=== PATIENT | female | born 1950 | race Caucasian/White ===

== ENCOUNTER 2016-12-29 09:13 | Inpatient (IN) | payer MEDICARE, OTHER ==
--- NOTE | 2016-12-26 15:02 | Anesthesia Consultation ---
Anesthesia Consult and Med Hx Date of service: 12/26/16 - Airway Anesthetic Teeth Evaluation: Good ROM Head & Neck: Adequate Mental/Hyoid Distance: Adequate Mallampati Class: Class II Intubation Access Assessment: Probably Good - Pulmonary Exam CTA: Yes - Cardiac Exam Cardiac Exam: RRR - Pre-Operative Health Status ASA Pre-Surgery Classification: ASA3 Proposed Anesthetic Plan: Spinal, MAC - Pre-Anesthesia Comment Pre-Anesthesia Comments: Hx of paralysis of L Vocal cord: resolved, on steroid medication, severe RA. Pt did not bring Cardiac and RA clearance today, RN will call for it on DOS. - Pulmonary Hx Smoking: No Hx Asthma: No Hx Sleep Apnea: No (YUDITH PRE SCREEN HIGH RISK) - Cardiovascular System Hx Hypertension: Yes (X 4 YRS) Hx Heart Attack/AMI: No - Central Nervous System Hx Neuromuscular Disorder: Yes (severe RA, cane/wheelchair prn) Hx Seizures: No CVA: No Hx Back Pain: Yes - Gastrointestinal Hx Gastroesophageal Reflux Disease: Yes (well controlled with meds) - Endocrine Hx Renal Disease: No Hx Liver Disease: No Hx Non-Insulin Dependent Diabetes: Yes Hx Hypothyroidism: Yes (on synthroid) - Hematic Hx Anemia: Yes Hx Sickle Cell Disease: No - Other Systems Hx Cancer: No - Additional Comments Anesthesia Medical History Comments: NAC
--- NOTE | 2016-12-28 13:55 | Admit Criteria Form ---
Admission Criteria Documentation: AMBULATORY SURGERY EXCEPTION CRITERIA Ambulatory Surgery Exception Criteria ( Place 'X' for any and all applicable criteria): Surgery or procedure performed on ambulatory basis may require inpatient stay for[A] ANY ONE of the following(1)(2)(3)(4)(5)(6)(7)(8)(9): [X] I. A preoperative situation, condition, or finding that warrants inpatient stay as indicated by ANY ONE of the following: [] a) Inpatient care needed because of severity of a disease or condition rather than the surgery (eg, severe cardiac or respiratory disease, severe infection) (15) (16 ) (17) (18) [] b) Emergent procedure (eg, angioplasty for acute ischemia)(19) [] c) Complex surgical approach or situation as indicated by ANY ONE of the following(3): [] i) Open approach needed instead of usual endoscopic, transcatheter, or other less invasive procedure [] ii) Difficult approach because of previous operation [] iii) Airway monitoring required after open neck procedures(20)(21) [] iv) Large mass requiring unusually extensive dissection [] v) Additional complicating feature requiring inpatient care (eg, drain management)(22(23): [X] d) Major surgery in a pt with high anesthetic risk as indicated by ANY ONE of the following (2)(3)(5)(7)(8): [X] i) ASA risk class III or higher (severe systemic disease impairing function) [D] [] ii) Advanced age (eg, older than 85 years)(14)(24) [] iii) Symptomatic heart failure(25) [] iv) Symptomatic asthma or COPD(8)(21) [] v) Morbid obesity with hemodynamic or respiratory problems(20)( 21)(26)(27) [] vi) Obstructive sleep apnea(20)(21) [] vii) Former premature infants who are younger than 60 weeks [] viii) High risk for severe postoperative abnormalities (eg, severe postoperative hypocalcemia after parathyroidectomy for severe hyperparathyroidism)(27)( 28) [] ix) Unstable angina(25) [] e) Drug-related risk requiring inpatient stay as indicated by ANY ONE of the following(5)(10)(14)(32)(33) [] i) Procedure requires discontinuing drugs or other therapy (eg , antiarrhythmic medication, antiseizure medication), which necessitates inpatient observation or treatment.(18)(31) [] ii) Major surgery and high risk drug use as indicated by ANY ONE of the following: [] 1) Active abuse of cocaine or similar drug [] 2) Monoamine oxidase inhibitor use [] 3) Other drug identified as posing risk [] f) Inadequate outpatient care situation as indicated by ANY ONE of the following(5)(10)(14)(32)(33) [] i) Patient lives remote from medical facility and procedure has urgent complication potential, and temporary nearby residence cannot be arranged [] ii) Patient will have postprocedure incapacitation and inadequate assistance at home, or alternative level of care cannot be arranged. [] iii) Patient will have long general anesthesia or procedure side effect resolution time, and competent person to stay with patient on first postoperative night at home or alternative level of care cannot be arranged. []iv) Other inadequate outpatient situation that cannot be handled by other means [] II. A perioperative event, condition, or finding that warrants inpatient stay as indicated by ANY ONE of the following (1)(2)(3): [] a) Inadequate physiologic recovery: cardiovascular, respiratory, or hemodynamic status not normal or near preoperative baseline(18) [] b) Hemodynamic instability [] c) Patient not alert with near normal or baseline mental status [] d) Temperature not normal or as expected and not appropriate for outpatient treatment of condition [] e) Ambulatory or appropriate activity level status not yet achieved post procedure [E](34)(35)(36) [] f) Operative site not appropriate (eg, unexpected or excessive drainage or bleeding) [] g) Postoperative effects not resolved or adequately managed (eg, significant pain or vomiting not appropriate for outpatient or next level of care)(10)(12) [] h) Complicating features requiring inpatient care as indicated by ANY ONE of the following(37): [] i) Severe complications of procedure (eg, bowel injury, airway compromise, vascular injury,severe hemorrhage) [] ii) Extensive (eg, dissection far beyond usual scope of procedure ) or prolonged (eg, 120 minutes beyond usual) surgery needed requiring inpatient postoperative care [] iii) Conversion to an open or complex procedure that requires inpatient care (eg, open vs laparoscopic cholecystectomy, abdominal vs vaginal hysterectomy)(38) [] iv) Comorbid condition or test result identified during or post procedure that requires inpatient care (7) [] v) Malignant hyperthermia(30) [] vi) Other complicating feature requiring inpatient care(22)(23) Inpatient stay may be needed until ALL of the following are present (1)(2)(3)(4) (5)(6)(10)(14)(33)(40): []a) Physiologic recovery: cardiovascular, respiratory, and hemodynamic status normal or near preoperative baseline []b) Hemodynamic stability []c) Patient alert, with near normal or baseline mental status []d) Temperature appropriate: patient afebrile or temperature appropriate for outpt treatment of condition []e) Activity level appropriate: ambulatory or appropriate activity level post procedure []f) Operative site appropriate as indicated by ALL of the following: []i) Site dry or with expected drainage []ii) Any blood noted is as expected for procedure. []g) Postoperative effects resolved or managed as indicated by ALL of the following: []i) Pain management appropriate for outpatient (or next level of) care(10) []ii) Minimal nausea and vomiting: if present, successfully treated with oral medication(12) []iii) Headache, dizziness, or drowsiness (if present) are mild. []h) Voiding status acceptable as indicated by ANY ONE of the following: []i) Voiding spontaneously []ii) No voiding but instructions given for follow-up in 6 to 8 hours []iii) Urinary catheter in place, and instructions given for follow-up []i) Complicating features requiring inpatient care manageable at a lower level of care(37) []j) Comorbid conditions manageable at a lower level of care(37) The original [employer] content created by [employer] has been revised. The portions of the content which have been revised are identified through the use of italic text or in bold, and [facility] [employer] has neither reviewed nor approved the modified material. All other unmodified content is copyright [employer]. Please see references footnoted in the original [employer] edition 2016 Admission Criteria Met: Yes
[~2016-12-29 09:13] MED LIST: ANCEF/STERILE WATER 2 GM/20 ML IV NR; NEURONTIN PO NR; PEPCID PO NR; VERSED IV NR
[2016-12-29] MEDS ORDERED: NACL 0.9% 1000 ML 1,000 ML ONE ×2 (09:32→13:35)
[2016-12-29] MEDS ORDERED: NACL BACTERIOSTATIC INFILTRATI ONE (09:35)
[2016-12-29] MEDS ORDERED: ANCEF/STERILE WATER 2 GM/20 ML IV NR (10:00)
[2016-12-29] MEDS: NACL 0.9% 1000 ML 1,000 ML IV SCH (10:20)
[2016-12-29] MEDS ORDERED: DILAUDID ONE ×3 (10:35→15:25)
[2016-12-29] MEDS ORDERED: DIPRIVAN 10 MG/ML IV ONE (10:35)
[2016-12-29] MEDS ORDERED: ZEMURON IV ONE (10:36)
[2016-12-29] MEDS ORDERED: XYLOCAINE MPF 2% ONE (10:36)
[2016-12-29] MEDS ORDERED: MARCAINE-EPI 0.5%-1:200,000 INFILTRATI ONE (10:52)
[2016-12-29] MEDS ORDERED: DECADRON ONE ×2 (10:52→14:10)
[2016-12-29] MEDS ORDERED: XYLOCAINE 1% 20 mL ONE (10:52)
[2016-12-29] MEDS ORDERED: ePHEDrine SULFATE ONE (12:01)
[2016-12-29] MEDS ORDERED: POLYMYXIN B SULFATE IV ONE (12:52)
[2016-12-29] MEDS ORDERED: WATER FOR IRRIG STERILE IR ONE (12:52)
[2016-12-29] MEDS ORDERED: XYLOCAINE 1%/ EPI 1:100,000 INFILTRATI ONE (12:52)
[2016-12-29] MEDS ORDERED: TRANEXAMIC ACID IV ONE (12:52)
[2016-12-29] MEDS ORDERED: BACITRACIN IR ONE (12:52)
[2016-12-29] MEDS ORDERED: NACL 0.9% IR ONE ×2 (12:52)
[2016-12-29] MEDS ORDERED: ZOFRAN ONE (14:10)
[2016-12-29] MEDS ORDERED: ROBINUL ONE (14:12)
[2016-12-29] MEDS ORDERED: NEOSTIGMINE ONE (14:12)
[2016-12-29] MEDS ORDERED: MORPHINE IM ONE (14:20)
[2016-12-29] MEDS ORDERED: TORADOL PO ONE (14:20)
[2016-12-29] MEDS ORDERED: MARCAINE 0.25% INFILTRATI ONE (14:20)
[2016-12-29] MEDS ORDERED: NACL 0.9% IV ONE (14:20)
[2016-12-29] MEDS ORDERED: TYLENOL PO PRN (14:28)
[2016-12-29] MEDS ORDERED: MILK OF MAGNESIA PO PRN (14:28)
[2016-12-29] MEDS ORDERED: ZOFRAN IV PRN (14:28)
[2016-12-29] MEDS ORDERED: PHENERGAN PR PRN (14:28)
[2016-12-29] MEDS ORDERED: TORADOL IV PRN ×2 (14:34→14:38)
[2016-12-29] MEDS ORDERED: NACL IV ONE (14:52)
[2016-12-29] MEDS ORDERED: SODIUM CHLORIDE FLUSH SYRINGE 10 ML IV SCH (15:00)
[2016-12-29] MEDS: DILAUDID IV PRN ×2 (15:25→16:30)
[2016-12-29] MEDS: ANCEF/NS 1 GM/50 ML 1 GM/50 ML BAG IV SCH (17:52)
--- NOTE | 2016-12-29 18:45 | Operative Report ---
SURGEON: Luke Singh M.D. ASSISTANTS: Brittaney operative tech and Axel operative tech. PREOPERATIVE DIAGNOSES: Severe advanced osteoarthritis of the left knee joint secondary to rheumatoid arthritis with genu valgum deformity, stiff left knee joint, synovial hypertrophy, synovial proliferation of the left knee joint. POSTOPERATIVE DIAGNOSES: Severe advanced osteoarthritis of the left knee joint secondary to rheumatoid arthritis with genu valgum deformity, stiff left knee joint, synovial hypertrophy, synovial proliferation of the left knee joint. PROCEDURES PERFORMED: 1. Left total knee replacement complex. 2. Synovectomy, left knee joint. COMPLICATIONS: None. BLOOD LOSS: Minimal. IMPLANTS USED: and Nephew Legion Oxinium femoral components, size 4 narrow left posterior stabilized. Prolonged poly S tibial size 2, Candida 2 polyethylene liner highly crossing 11 mm, patella 29 mm, 3 post 77.5 mm thick. Incision: Midline incision medial. Arthrotomy, medial parapatellar arthrotomy. Medial release: No. Lateral release: Yes. Recut: No. Vessel saved: Not applicable. Epicondylar angle: 4 degrees. Cement: Palacos R + G. DETAILS OF THE OPERATIVE REPORT: The patient was taken to the operative room. After smooth general endotracheal anesthesia, all the bony prominences carefully padded, placed supine on the operating table. Gibson catheter placed. Thigh Tourniquet placed. Left lower extremity prepped and draped in sterile fashion. The patient given 1 g of Ancef half an hour before the procedure. Leg elevated, tourniquet inflated to 95 mmHg. Longitudinal incision made over the anterior aspect of the knee exposing extensive mechanism, but an arthrotomy performed. Patella was displaced laterally. Gross finding revealed severe advanced degenerative arthritis, synovial hypertrophy with perforation seen, and necessary soft tissue release was performed to correct the fixed angular deformity, medial retractors were placed to protect the medial collaterals ligament. Drill was used to open up the femoral canal. Distal intramedullary femoral cutting guide was placed. Distal femur resected 5 degree valgus angle. Epicondylar access apex was determined. Femoral sizing guide was placed, appropriate components selected. Anterior and posterior condyles were resected with oscillating saw. Extramedullary tibial cutting guide was placed, proximal tibia resected perpendicular to the long axis of tibia. Minimum bone resection performed about 6 mm from the proximal medial tibia given the significant valgus deformity and stretched medial collateral ligament. Minimum bone resection performed. Gap balancing was achieved by doing appropriate release on the lateral side. Once gap balancing was achieved, tibia was prepared by placing the tibial tray while placing in proper position, proper external rotation, prepared with a drill and punch technique. Femur was then placed in proper position, proper external rotation, and packed in place, and prepared. A trial femur was placed and then prepared for the box through and Nephew box perforation technique. Trialing was then performed. With 11 poly, we had great stability, full extension, full flexion, stable medially and laterally, and stable anteroposteriorly, full extension, and full flexion. Patellar tracking central. Patella prepared with patellar reaming system prepared for three post-patella. Prepatellar thickness 25 mm, post-patellar 24 mm. 7.5 mm thickness patella was used. Patellar tracking central throughout range of motion. Trial components were removed, thoroughly washed the knee area with antibiotic-soaked normal saline followed by normal saline, and cementing of the knee was then commenced. Tibia was cemented first set in proper position, proper external rotation, impacted in place. Excess cement was removed. Femur was then cemented in proper position, proper external rotation, impacted in place. Excess cement was removed. Trial liner was then placed, cementing of the patella was performed compression in place. Excess cement was removed. Once the cement was hardened, real tibial articulating surface was implanted and locked in place and knee moved through range of motion, stable throughout range of motion. Patellar tracking central. Tourniquet released. Hemostasis achieved with electrocautery. No active bleeder as such. Arthrotomy closed with 0 Vicryl suture, subcutaneous tissue closed with 0 and 2-0 Vicryl interrupted sutures, skin was closed with Monocryl. Aquacel dressing was done. Jono wrap applied. The patient tolerated the procedure well, shifted to recovery room in stable condition. Sponge and needle count was correct. JOB# [id number] YAHIR/KOLTON
--- NOTE | 2016-12-29 20:43 | Consultation ---
History of Present Illness - Reason for Consult Consult date: 12/29/16 Medical Management Requesting physician: GILLIAN MENJIVAR - History of Present Illness S/p L TKA-post op doing well.No complications. Past History Past Medical History: arthritis (Severe RA), diabetes, hypertension Past Surgical History: total knee replacement Social history: no significant social history, lives with family Family history: hypertension Medications and Allergies Allergies Allergy/AdvReac Type Severity Reaction Status Date / Time infliximab [From Remicade] Allergy Itching Verified 12/26/16 10:43 methotrexate AdvReac Anaphylaxis Verified 12/26/16 10:43 Home Medications Medication Instructions Recorded Confirmed Last Taken Type Abatacept [Orencia] 500 mg SQ Q4W 12/26/16 12/26/16 12/28/16 History Brinzolamide [Azopt 1%] 1 drop INTRAOCULA BID 12/26/16 12/26/16 12/28/16 History Calcium Carbonate 400 mg PO BID 12/26/16 12/26/16 12/28/16 History Cholecalciferol Vit D3 [Vitamin D3] 1,000 unit PO BID 12/26/16 12/26/16 History Diclofenac Sodium 75 mg PO BID 12/26/16 12/29/16 1 Week Ago History Folic Acid 0.4 mg PO QDAY 12/26/16 12/26/16 12/28/16 History Hydrochlorothiazide [Hctz] 12.5 mg PO QDAY 12/26/16 12/26/16 12/28/16 History Leflunomide [Arava] 5 mg PO QDAY 12/26/16 12/29/16 1 Week Ago History Levothyroxine [Synthroid] 88 mcg PO QAM 12/26/16 12/26/16 12/29/16 08:00 History Losartan [Cozaar] 100 mg PO QDAY 12/26/16 12/29/16 12/29/16 08:00 History Prednisone [predniSONE (Bennie) ER 5 mg PO QDAY 12/26/16 12/29/16 12/29/16 08:00 History TAB] Ranitidine HCl [Heartburn Relief] 150 mg PO BID 12/26/16 12/26/16 12/28/16 History Rosuvastatin (Nf) [Crestor] 2.5 mg PO Q48HR 12/26/16 12/26/16 12/28/16 History Sitagliptin/Metformin (Nf) 1 tab PO BID 12/26/16 12/26/16 12/28/16 History [Janumet 50-1,000 mg (Nf)] Travoprost 0.004% Eye Drop 1 drop INTRAOCULA QHS 12/26/16 12/26/16 12/28/16 History amLODIPine [Norvasc] 5 mg PO DAILY 12/26/16 12/26/16 12/29/16 08:00 History traMADol [Ultram 50 MG tab] 50 mg PO PRN PRN 12/26/16 12/26/16 12/28/16 History Acetaminophen [Shake That Ache] 2 tab PO ONCE 12/29/16 12/29/16 12/29/16 08:00 History Celecoxib [Celecoxib] 1 tab PO ONCE 12/29/16 12/29/16 12/29/16 08:00 History Gabapentin [Gabapentin] 1 tab PO ONCE 12/29/16 12/29/16 12/29/16 08:00 History Oxycodone HCl [Oxycontin] 10 mg PO ONCE 12/29/16 12/29/16 12/29/16 08:00 History Active Meds: Active Medications Acetaminophen (Tylenol) 650 mg PO Q4H PRN PRN Reason: Pain MILD(1-3)/Fever >100.5/FRENCH Amlodipine Besylate (Norvasc) 5 mg PO DAILY [facility] Aspirin (Aspirin) 325 mg PO BID [facility] Atorvastatin Calcium (Lipitor) 5 mg PO Q48H [facility] Calcium Carbonate/Glycine (Tums) 500 mg PO BID [facility] Cholecalciferol (Vitamin D3) 1,000 unit PO BID [facility] Famotidine (Pepcid) 20 mg PO PREOP NR Stop: 12/29/16 23:59 Last Admin: 12/29/16 10:31 Dose: 20 mg Famotidine (Pepcid) 20 mg PO BID JIGNESH Hydrochlorothiazide (Hctz) 12.5 mg PO QDAY JIGNESH Hydromorphone HCl (Dilaudid) 0.5 mg IV Q10MIN PRN PRN Reason: Pain , Severe (7-10) Stop: 12/29/16 23:00 Last Admin: 12/29/16 16:30 Dose: 0.5 mg Sodium Chloride (Nacl 0.9% 1000 Ml) 1,000 mls @ 100 mls/hr IV DIRECT JIGNESH Last Admin: 12/29/16 10:20 Dose: 100 mls/hr Cefazolin Sodium (Ancef/Ns 1 Gm/50 Ml) 1 gm in 50 mls @ 100 mls/hr IV Q8H JIGNESH Stop: 12/30/16 10:59 Last Admin: 12/29/16 17:52 Dose: 100 mls/hr Ketorolac Tromethamine (Toradol) 15 mg IV Q6H PRN PRN Reason: Pain , Severe (7-10) Stop: 12/30/16 02:35 Latanoprost (Xalatan 0.005%) 1 drops OU QPM [facility] Levothyroxine Sodium (Synthroid) 88 mcg PO QAM [facility] Linagliptin (Tradjenta) 5 mg PO BIDDIAB [facility] Losartan Potassium (Cozaar) 100 mg PO QDAY [facility] Magnesium Hydroxide (Milk Of Magnesia) 30 ml PO Q4H PRN PRN Reason: Constipation Metformin HCl (Glucophage) 1,000 mg PO BIDDIAB [facility] Midazolam HCl (Versed) 2 mg IV PREOP NR Stop: 12/29/16 23:59 Last Admin: 12/29/16 11:01 Dose: 1 mg Miscellaneous Medication (Brinzolamide [Azopt 1%]) 1 drop INTRAOCULA BID [facility] Miscellaneous Medication (Folic Acid [Folic Acid]) 0.4 mg PO QDAY [facility] Ondansetron HCl (Zofran) 4 mg IV Q8H PRN PRN Reason: Nausea And Vomiting Oxycodone HCl (Roxicodone) 5 mg PO Q4H PRN PRN Reason: Pain, Moderate (4-6) Prednisone (Deltasone) 5 mg PO QDAY [facility] Promethazine HCl (Phenergan) 25 mg AL Q6H PRN PRN Reason: Nausea And Vomiting Sodium Chloride (Sodium Chloride Flush Syringe 10 Ml) 10 ml IV PRN [facility] Review of Systems All systems: negative Exam - Constitutional Vitals: Temp Pulse Resp BP Pulse Ox 97.4 F L 98 H 18 116/53 98 12/29/16 18:00 12/29/16 18:00 12/29/16 18:00 12/29/16 18:00 12/29/16 18:00 General appearance: Present: no acute distress, well-nourished - EENT Eyes: Present: PERRL ENT: hearing intact, clear oral mucosa - Neck Neck: Present: supple, normal ROM - Respiratory Respiratory effort: normal Respiratory: bilateral: CTA - Cardiovascular Heart Sounds: Present: S1 & S2. Absent: rub, click - Extremities Extremities: pulses symmetrical, No edema Extremity abnormal: deformity (Mar Lin neck deformity in both hands) Peripheral Pulses: within normal limits - Abdominal General gastrointestinal: Present: soft, non-tender, non-distended, normal bowel sounds Female genitourinary: Present: normal - Integumentary Integumentary: Present: clear, warm, dry - Musculoskeletal Musculoskeletal: gait normal, strength equal bilaterally - Psychiatric Psychiatric: appropriate mood/affect, intact judgment & insight - Neurologic Neurologic: CNII-XII intact, moves all extremities Results - Labs CBC & Chem 7: 12/30/16 04:40 12/30/16 04:40 Labs: Abnormal lab results 12/29/16 12/29/16 12/29/16 Range/Units 10:05 15:05 17:05 POC Glucose 116 H 191 H 221 H (70-105) Assessment and Plan - Patient Problems (1) Hx of total knee arthroplasty Current Visit: Yes Status: Acute Qualifiers: Laterality: left Qualified Code(s): Z96.652 - Presence of left artificial knee joint Plan to address problem: Post op doing well (2) HTN (hypertension) Current Visit: Yes Status: Chronic Qualifiers: Hypertension type: essential hypertension Qualified Code(s): I10 - Essential (primary) hypertension Plan to address problem: Cont amlodipine (3) Rheumatoid arthritis Current Visit: Yes Status: Chronic Qualifiers: Rheumatoid arthritis location: hand Rheumatoid factor presence: R Laterality: bilateral Plan to address problem: Will hold Arava and orencia b/c of recent surgery Can resume after discharge (4) T2DM (type 2 diabetes mellitus) Current Visit: Yes Status: Chronic Qualifiers: Diabetes mellitus complication status: without complication Diabetes mellitus complication detail: D Diabetic retinopathy severity: D Proliferative retinopathy type: P Diabetes mellitus macular edema: D Diabetes mellitus exterminator insulin use: without senior living use Laterality: L Chronic kidney disease stage: C Qualified Code(s): E11.9 - Type 2 diabetes mellitus without complications Plan to address problem: Cont metformin and coverage (5) DVT prophylaxis Current Visit: Yes Status: Acute Plan to address problem: On ASA
[2016-12-29] MEDS ORDERED: EYE INTRAOCULA SCH (22:00)
[2016-12-29] MEDS ORDERED: RANITIDINE HCL 150 MG PO SCH (22:00)
[2016-12-29] MEDS ORDERED: TRAVOPROST 0.004% INTRAOCULA SCH (22:00)
[2016-12-29] MEDS ORDERED: METFORMIN PO SCH (22:00)
[2016-12-29] MEDS ORDERED: CALCIUM CARBONATE 400 MG PO SCH (22:00)
[2016-12-29] MEDS ORDERED: SITAGLIPTIN PO SCH (22:00)
[2016-12-29] MEDS: PEPCID PO SCH (23:20)
[2016-12-29] MEDS: TUMS PO SCH (23:20)
[2016-12-29] MEDS: VITAMIN D3 PO SCH (23:21)
[2016-12-29] MEDS: NON-FORMULARY (Brinzolamide [Azopt 1%] 1 DROP) INTRAOCULA SCH (23:22)
[2016-12-30] MEDS: ANCEF/NS 1 GM/50 ML 1 GM/50 ML BAG IV SCH (02:10)
[2016-12-30 05:02] LABS: Hematocrit 31.3 % (30.3-42.9); Hemoglobin 9.8 gm/dl (10.1-14.3); Mean Corpuscular HGB Conc 32 % (30-34); Mean Corpuscular Hemoglobin 29 pg (28-32); Mean Corpuscular Volume 94 fl (79-97); Platelet Count 224 K/mm3 (140-440); Red Blood Count 3.35 M/mm3 (3.65-5.03); Red Cell Distribution Width 15.5 % (13.2-15.2); White Blood Count 9.8 K/mm3 (4.5-11.0)
[2016-12-30 05:12] LABS: INR 1.13 (0.87-1.13)
[2016-12-30 05:18] LABS: BUN/Creatinine Ratio 18.33; Calcium 7.3 mg/dL (8.4-10.2); Chloride 96.1 mmol/L (98-107); Potassium 5.4 mmol/L (3.6-5.0)
[2016-12-30 06:23] LABS: Basophils % (Manual) 0 % (0.0-1.8); Blastocytes % (Manual) 0 %; Diff Status Complete; Eosinophils % (Manual) 0 % (0.0-4.3); Platelet Estimate Consistent w Auto; RBC Morphology Normal
--- NOTE | 2016-12-30 08:41 | XRay Report ---
X-RAY LEFT KNEE TWO VIEWS: 12/29/16 14:37:00 CLINICAL: Postop total knee replacement. No comparison. FINDINGS: Status post totally replacement with normal alignment and normal appearance of the prosthesis. Soft tissue air but no foreign body. IMPRESSION: Negative status post total knee replacement.
[2016-12-30] MEDS ORDERED: COZAAR PO SCH (10:00)
[2016-12-30] MEDS ORDERED: NON-FORMULARY (Folic Acid [Folic Acid] 0.4 MG) PO SCH (10:00)
[2016-12-30] MEDS ORDERED: NON-FORMULARY (Prednisone [Prednisone (Rayos) Er Tab] 5 MG) PO SCH (10:00)
[2016-12-30] MEDS ORDERED: NON-FORMULARY (Losartan [Cozaar] 100 MG) PO SCH (10:00)
--- NOTE | 2016-12-30 10:30 | Progress Note ---
Subjective Date of service: 12/30/16 (Pt ambulating back to bed with PT, pt tolerating. No acute issues noted. No questions at this time.) Objective - Constitutional Vitals: Vital Signs - 12hr 12/29/16 23:33 Temperature 97.7 F Pulse Rate [ 38 L Left] Respiratory 20 Rate Blood Pressure 112/53 [Left Arm] O2 Sat by Pulse 97 Oximetry - Labs CBC & Chem 7: 12/30/16 04:40 12/30/16 04:40 Labs: Abnormal lab results 12/29/16 12/29/16 12/29/16 Range/Units 15:05 17:05 22:41 RBC (3.65-5.03) M/mm3 Hgb (10.1-14.3) gm/dl RDW (13.2-15.2) % Seg Neuts % (Manual) (40.0-70.0) % Lymphocytes % (Manual) (13.4-35.0) % Lymphocytes # (Manual) (1.2-5.4) K/mm3 Sodium (137-145) mmol/L Potassium (3.6-5.0) mmol/L Chloride (98-107) mmol/L Carbon Dioxide (22-30) mmol/L BUN (7-17) mg/dL Glucose (65-100) mg/dL POC Glucose 191 H 221 H 251 H (70-105) Calcium (8.4-10.2) mg/dL 12/30/16 12/30/16 12/30/16 Range/Units 04:40 04:40 06:28 RBC 3.35 L (3.65-5.03) M/mm3 Hgb 9.8 L (10.1-14.3) gm/dl RDW 15.5 H (13.2-15.2) % Seg Neuts % (Manual) 78.0 H (40.0-70.0) % Lymphocytes % (Manual) 4.0 L (13.4-35.0) % Lymphocytes # (Manual) 0.4 L (1.2-5.4) K/mm3 Sodium 130 L (137-145) mmol/L Potassium 5.4 H (3.6-5.0) mmol/L Chloride 96.1 L (98-107) mmol/L Carbon Dioxide 17 L (22-30) mmol/L BUN 22 H (7-17) mg/dL Glucose 227 H (65-100) mg/dL POC Glucose 266 H (70-105) Calcium 7.3 L (8.4-10.2) mg/dL
[2016-12-30] MEDS: PEPCID PO SCH ×2 (10:58→23:20)
[2016-12-30] MEDS: DELTASONE PO SCH (10:59)
[2016-12-30] MEDS: TUMS PO SCH ×2 (11:00→23:21)
[2016-12-30] MEDS: NOVOLOG SUB-Q SCH ×2 (11:00→23:00)
[2016-12-30] MEDS: VITAMIN D3 PO SCH ×2 (11:00→23:20)
[2016-12-30] MEDS: ASPIRIN PO SCH ×3 (11:00→23:20)
[2016-12-30] MEDS: GLUCOPHAGE PO SCH ×2 (11:00→17:05)
[2016-12-30] MEDS: TRADJENTA PO SCH ×2 (11:04→17:07)
[2016-12-30] MEDS: SYNTHROID PO SCH (11:07)
[2016-12-30] MEDS: NORVASC PO SCH (11:08)
[2016-12-30] MEDS: HCTZ PO SCH (11:09)
[2016-12-30] MEDS: NON-FORMULARY (Brinzolamide [Azopt 1%] 1 DROP) INTRAOCULA SCH (11:12)
--- NOTE | 2016-12-30 11:12 | Progress Note ---
Assessment and Plan Assessment and plan: 1. Total knee arthroplasty. Continue PT/OT postoperatively. Pain control. Patient likely would need rehabilitation placement. 2. Hyperkalemia. Kayexalate 1. Follow-up BMP. 3. Hypertension. Continue Norvasc. 4. Rheumatoid arthritis. Resume medications at discharge. 5. Type 2 diabetes mellitus. Continue metformin and sliding scale coverage. History Interval history: No new issues overnight. Hospitalist Physical - Constitutional Vitals: Temp Pulse Resp BP Pulse Ox 97.7 F 38 L 20 112/53 97 12/29/16 23:33 12/29/16 23:33 12/29/16 23:33 12/29/16 23:33 12/29/16 23:33 General appearance: Present: no acute distress, well-nourished - EENT Eyes: Present: PERRL, EOM intact ENT: hearing intact, clear oral mucosa, dentition normal - Neck Neck: Present: supple, normal ROM - Respiratory Respiratory effort: normal Respiratory: bilateral: CTA - Cardiovascular Rhythm: regular Heart Sounds: Present: S1 & S2. Absent: gallop, rub - Extremities Extremities: no ischemia, No edema, Full ROM - Abdominal General gastrointestinal: soft, non-tender, non-distended, normal bowel sounds - Integumentary Integumentary: Present: clear, warm, dry - Neurologic Neurologic: CNII-XII intact, moves all extremities Results - Labs CBC & Chem 7: 12/30/16 04:40 12/30/16 04:40 Labs: Laboratory Last Values WBC 9.8 K/mm3 (4.5-11.0) 12/30/16 04:40 RBC 3.35 M/mm3 (3.65-5.03) L 12/30/16 04:40 Hgb 9.8 gm/dl (10.1-14.3) L 12/30/16 04:40 Hct 31.3 % (30.3-42.9) 12/30/16 04:40 MCV 94 fl (79-97) 12/30/16 04:40 MCH 29 pg (28-32) 12/30/16 04:40 MCHC 32 % (30-34) 12/30/16 04:40 RDW 15.5 % (13.2-15.2) H 12/30/16 04:40 Plt Count 224 K/mm3 (140-440) 12/30/16 04:40 Add Manual Diff Complete 12/30/16 04:40 Total Counted 100 12/30/16 04:40 Seg Neutrophils % Powerhouse Mechanic 12/30/16 04:40 Seg Neuts % (Manual) 78.0 % (40.0-70.0) H 12/30/16 04:40 Band Neutrophils % 12.0 % 12/30/16 04:40 Lymphocytes % (Manual) 4.0 % (13.4-35.0) L 12/30/16 04:40 Reactive Lymphs % (Man) 0 % 12/30/16 04:40 Monocytes % (Manual) 6.0 % (0.0-7.3) 12/30/16 04:40 Eosinophils % (Manual) 0 % (0.0-4.3) 12/30/16 04:40 Basophils % (Manual) 0 % (0.0-1.8) 12/30/16 04:40 Metamyelocytes % 0 % 12/30/16 04:40 Myelocytes % 0 % 12/30/16 04:40 Promyelocytes % 0 % 12/30/16 04:40 Blast Cells % 0 % 12/30/16 04:40 Nucleated RBC % Not Reportable 12/30/16 04:40 Seg Neutrophils # Man 7.6 K/mm3 (1.8-7.7) 12/30/16 04:40 Band Neutrophils # 1.2 K/mm3 12/30/16 04:40 Lymphocytes # (Manual) 0.4 K/mm3 (1.2-5.4) L 12/30/16 04:40 Abs React Lymphs (Man) 0.0 K/mm3 12/30/16 04:40 Monocytes # (Manual) 0.6 K/mm3 (0.0-0.8) 12/30/16 04:40 Eosinophils # (Manual) 0.0 K/mm3 (0.0-0.4) 12/30/16 04:40 Basophils # (Manual) 0.0 K/mm3 (0.0-0.1) 12/30/16 04:40 Metamyelocytes # 0.0 K/mm3 12/30/16 04:40 Myelocytes # 0.0 K/mm3 12/30/16 04:40 Promyelocytes # 0.0 K/mm3 12/30/16 04:40 Blast Cells # 0.0 K/mm3 12/30/16 04:40 WBC Morphology Not Reportable 12/30/16 04:40 Hypersegmented Neuts Not Reportable 12/30/16 04:40 Hyposegmented Neuts Not Reportable 12/30/16 04:40 Hypogranular Neuts Not Reportable 12/30/16 04:40 Smudge Cells Not Reportable 12/30/16 04:40 Toxic Granulation Not Reportable 12/30/16 04:40 Toxic Vacuolation Not Reportable 12/30/16 04:40 Dohle Bodies Not Reportable 12/30/16 04:40 Pelger-Huet Anomaly Not Reportable 12/30/16 04:40 Amrik Rods Not Reportable 12/30/16 04:40 Platelet Estimate Consistent w auto 12/30/16 04:40 Clumped Platelets Not Reportable 12/30/16 04:40 Plt Clumps, EDTA Not Reportable 12/30/16 04:40 Large Platelets Not Reportable 12/30/16 04:40 Giant Platelets Not Reportable 12/30/16 04:40 Platelet Satelliting Not Reportable 12/30/16 04:40 Plt Morphology Comment Not Reportable 12/30/16 04:40 RBC Morphology Normal 12/30/16 04:40 Dimorphic RBCs Not Reportable 12/30/16 04:40 Polychromasia Not Reportable 12/30/16 04:40 Hypochromasia Not Reportable 12/30/16 04:40 Poikilocytosis Not Reportable 12/30/16 04:40 Anisocytosis Not Reportable 12/30/16 04:40 Microcytosis Not Reportable 12/30/16 04:40 Macrocytosis Not Reportable 12/30/16 04:40 Spherocytes Not Reportable 12/30/16 04:40 Pappenheimer Bodies Not Reportable 12/30/16 04:40 Sickle Cells Not Reportable 12/30/16 04:40 Target Cells Not Reportable 12/30/16 04:40 Tear Drop Cells Not Reportable 12/30/16 04:40 Ovalocytes Not Reportable 12/30/16 04:40 Helmet Cells Not Reportable 12/30/16 04:40 Trevino-[place] Bodies Not Reportable 12/30/16 04:40 [place] Rings Not Reportable 12/30/16 04:40 [place] Cells Not Reportable 12/30/16 04:40 Bite Cells Not Reportable 12/30/16 04:40 Crenated Cell Not Reportable 12/30/16 04:40 Elliptocytes Not Reportable 12/30/16 04:40 Acanthocytes (Spur) Not Reportable 12/30/16 04:40 Rouleaux Not Reportable 12/30/16 04:40 Hemoglobin C Crystals Not Reportable 12/30/16 04:40 Schistocytes Not Reportable 12/30/16 04:40 Malaria parasites Not Reportable 12/30/16 04:40 Manny Bodies Not Reportable 12/30/16 04:40 Hem Pathologist Commnt No 12/30/16 04:40 PT 14.4 Sec. (12.2-14.9) 12/30/16 04:40 INR 1.13 (0.87-1.13) 12/30/16 04:40 Sodium 130 mmol/L (137-145) L 12/30/16 04:40 Potassium 5.4 mmol/L (3.6-5.0) H 12/30/16 04:40 Chloride 96.1 mmol/L (98-107) L 12/30/16 04:40 Carbon Dioxide 17 mmol/L (22-30) L 12/30/16 04:40 Anion Gap 22 mmol/L 12/30/16 04:40 BUN 22 mg/dL (7-17) H 12/30/16 04:40 Creatinine 1.2 mg/dL (0.7-1.2) 12/30/16 04:40 Estimated GFR 45 ml/min 12/30/16 04:40 BUN/Creatinine Ratio 18.33 % 12/30/16 04:40 Glucose 227 mg/dL (65-100) H 12/30/16 04:40 POC Glucose 266 (70-105) H 12/30/16 06:28 Calcium 7.3 mg/dL (8.4-10.2) L 12/30/16 04:40 Blood Type B POSITIVE 12/29/16 10:00 Antibody Screen Negative 12/29/16 10:00
[2016-12-30] MEDS ORDERED: KIONEX PO ONE ×2 (12:00→18:00)
--- NOTE | 2016-12-30 13:19 | Progress Note ---
Subjective Date of service: 12/30/16 Interval history: pod1, patient lying on bed comfortably, no complaints,,, dressintg dry vitals stable but as per Nurse HR little low. Nurse was informed to call Medical team and patient had low HR before surgery when dr. Fredis magallon stated it was safe to procced wityht he surgery. knee exercise taught on bedside. patinet requesting to be seen by for Low HR Objective Vital signs: Vital Signs - 12hr 12/30/16 12/30/16 12/30/16 08:00 11:00 11:08 Temperature 98.4 F 98.6 F Pulse Rate 44 L Pulse Rate [ 50 L 44 L Left] Respiratory 16 20 Rate Blood Pressure 105/52 Blood Pressure 105/52 [Left Arm] O2 Sat by Pulse 98 Oximetry 12/30/16 11:10 Temperature Pulse Rate 44 L Pulse Rate [ Left] Respiratory Rate Blood Pressure 105/52 Blood Pressure [Left Arm] O2 Sat by Pulse Oximetry - Labs CBC & BMP: 12/30/16 04:40 12/30/16 04:40 Labs: Abnormal lab results 12/29/16 12/29/16 12/29/16 Range/Units 15:05 17:05 22:41 RBC (3.65-5.03) M/mm3 Hgb (10.1-14.3) gm/dl RDW (13.2-15.2) % Seg Neuts % (Manual) (40.0-70.0) % Lymphocytes % (Manual) (13.4-35.0) % Lymphocytes # (Manual) (1.2-5.4) K/mm3 Sodium (137-145) mmol/L Potassium (3.6-5.0) mmol/L Chloride (98-107) mmol/L Carbon Dioxide (22-30) mmol/L BUN (7-17) mg/dL Glucose (65-100) mg/dL POC Glucose 191 H 221 H 251 H (70-105) Calcium (8.4-10.2) mg/dL 12/30/16 12/30/16 12/30/16 Range/Units 04:40 04:40 06:28 RBC 3.35 L (3.65-5.03) M/mm3 Hgb 9.8 L (10.1-14.3) gm/dl RDW 15.5 H (13.2-15.2) % Seg Neuts % (Manual) 78.0 H (40.0-70.0) % Lymphocytes % (Manual) 4.0 L (13.4-35.0) % Lymphocytes # (Manual) 0.4 L (1.2-5.4) K/mm3 Sodium 130 L (137-145) mmol/L Potassium 5.4 H (3.6-5.0) mmol/L Chloride 96.1 L (98-107) mmol/L Carbon Dioxide 17 L (22-30) mmol/L BUN 22 H (7-17) mg/dL Glucose 227 H (65-100) mg/dL POC Glucose 266 H (70-105) Calcium 7.3 L (8.4-10.2) mg/dL 12/30/16 Range/Units 12:09 RBC (3.65-5.03) M/mm3 Hgb (10.1-14.3) gm/dl RDW (13.2-15.2) % Seg Neuts % (Manual) (40.0-70.0) % Lymphocytes % (Manual) (13.4-35.0) % Lymphocytes # (Manual) (1.2-5.4) K/mm3 Sodium (137-145) mmol/L Potassium (3.6-5.0) mmol/L Chloride (98-107) mmol/L Carbon Dioxide (22-30) mmol/L BUN (7-17) mg/dL Glucose (65-100) mg/dL POC Glucose 185 H (70-105) Calcium (8.4-10.2) mg/dL
--- NOTE | 2016-12-30 13:31 | Consultation ---
History of Present Illness - Reason for Consult Consult date: 12/30/16 Evaluate for Acute IRU - History of Present Illness 66 y.o. female with history of severe rheumatoid arthritis admitted for left total knee arthroplasty. Pt tolerated procedure, however, noted to have bradycardia post-operatively. Also noted to have hypnoatremia, hyperkalemia and elevated BUN on AM labs; IM following and Cardiology consulted. On today, pt reports some lightheadedness during gait training with PT. Consult requested for post-acute placement recommendations. Past History Past Medical History: anemia, arthritis (Severe RA), diabetes, GERD, hypertension, hypothyroidism Past Surgical History: total knee replacement (now bilaterally), Other ( bilateral great toe fusions; right ankle surgery) Social history: Lives alone. denies: smoking, alcohol abuse Family history: CAD, hypertension Medications and Allergies Allergies Allergy/AdvReac Type Severity Reaction Status Date / Time infliximab [From Remicade] Allergy Itching Verified 12/26/16 10:43 methotrexate AdvReac Anaphylaxis Verified 12/26/16 10:43 Home Medications Medication Instructions Recorded Confirmed Last Taken Type Abatacept [Orencia] 500 mg SQ Q4W 12/26/16 12/26/16 12/28/16 History Brinzolamide [Azopt 1%] 1 drop INTRAOCULA BID 12/26/16 12/26/16 12/28/16 History Calcium Carbonate 400 mg PO BID 12/26/16 12/26/16 12/28/16 History Cholecalciferol Vit D3 [Vitamin D3] 1,000 unit PO BID 12/26/16 12/26/16 History Diclofenac Sodium 75 mg PO BID 12/26/16 12/29/16 1 Week Ago History Folic Acid 0.4 mg PO QDAY 12/26/16 12/26/16 12/28/16 History Hydrochlorothiazide [Hctz] 12.5 mg PO QDAY 12/26/16 12/26/16 12/28/16 History Leflunomide [Arava] 5 mg PO QDAY 12/26/16 12/29/16 1 Week Ago History Levothyroxine [Synthroid] 88 mcg PO QAM 12/26/16 12/26/16 12/29/16 08:00 History Losartan [Cozaar] 100 mg PO QDAY 12/26/16 12/29/16 12/29/16 08:00 History Prednisone [predniSONE (Bennie) ER 5 mg PO QDAY 12/26/16 12/29/16 12/29/16 08:00 History TAB] Ranitidine HCl [Heartburn Relief] 150 mg PO BID 12/26/16 12/26/16 12/28/16 History Rosuvastatin (Nf) [Crestor] 2.5 mg PO Q48HR 12/26/16 12/26/16 12/28/16 History Sitagliptin/Metformin (Nf) 1 tab PO BID 12/26/16 12/26/16 12/28/16 History [Janumet 50-1,000 mg (Nf)] Travoprost 0.004% Eye Drop 1 drop INTRAOCULA QHS 12/26/16 12/26/16 12/28/16 History amLODIPine [Norvasc] 5 mg PO DAILY 12/26/16 12/26/16 12/29/16 08:00 History traMADol [Ultram 50 MG tab] 50 mg PO PRN PRN 12/26/16 12/26/16 12/28/16 History Acetaminophen [Shake That Ache] 2 tab PO ONCE 12/29/16 12/29/16 12/29/16 08:00 History Celecoxib [Celecoxib] 1 tab PO ONCE 12/29/16 12/29/16 12/29/16 08:00 History Gabapentin [Gabapentin] 1 tab PO ONCE 12/29/16 12/29/16 12/29/16 08:00 History Oxycodone HCl [Oxycontin] 10 mg PO ONCE 12/29/16 12/29/16 12/29/16 08:00 History Active Meds: Active Medications Acetaminophen (Tylenol) 650 mg PO Q4H PRN PRN Reason: Pain MILD(1-3)/Fever >100.5/FRENCH Amlodipine Besylate (Norvasc) 5 mg PO DAILY [facility] Last Admin: 12/30/16 11:08 Dose: Not Given Aspirin (Aspirin) 325 mg PO BID [facility] Last Admin: 12/30/16 11:00 Dose: 325 mg Atorvastatin Calcium (Lipitor) 5 mg PO Q48H [facility] Calcium Carbonate/Glycine (Tums) 500 mg PO BID [facility] Last Admin: 12/30/16 11:00 Dose: 500 mg Celecoxib (Celebrex) mg PO ONCE [facility] Cholecalciferol (Vitamin D3) 1,000 unit PO BID [facility] Last Admin: 12/30/16 11:00 Dose: 1,000 unit Famotidine (Pepcid) 20 mg PO BID [facility] Last Admin: 12/30/16 10:58 Dose: 20 mg Hydrochlorothiazide (Hctz) 12.5 mg PO QDAY [facility] Last Admin: 12/30/16 11:09 Dose: Not Given Sodium Chloride (Nacl 0.9% 1000 Ml) 1,000 mls @ 100 mls/hr IV DIRECT [facility] Last Admin: 12/29/16 10:20 Dose: 100 mls/hr Insulin Aspart (Novolog) 0 units SUB-Q Q12H [facility] PRN Reason: Protocol Latanoprost (Xalatan 0.005%) 1 drops OU QPM [facility] Levothyroxine Sodium (Synthroid) 88 mcg PO QAM [facility] Last Admin: 12/30/16 11:07 Dose: Not Given Linagliptin (Tradjenta) 5 mg PO BIDDIAB [facility] Last Admin: 12/30/16 11:04 Dose: 5 mg Losartan Potassium (Cozaar) 100 mg PO QDAY [facility] Last Admin: 12/30/16 11:10 Dose: Not Given Magnesium Hydroxide (Milk Of Magnesia) 30 ml PO Q4H PRN PRN Reason: Constipation Metformin HCl (Glucophage) 1,000 mg PO BIDDIAB [facility] Miscellaneous Medication (Brinzolamide [Azopt 1%]) 1 drop INTRAOCULA BID [facility] Last Admin: 12/30/16 11:12 Dose: Not Given Miscellaneous Medication (Folic Acid [Folic Acid]) 0.4 mg PO QDAY [facility] Ondansetron HCl (Zofran) 4 mg IV Q8H PRN PRN Reason: Nausea And Vomiting Oxycodone HCl (Roxicodone) 5 mg PO Q4H PRN PRN Reason: Pain, Moderate (4-6) Prednisone (Deltasone) 5 mg PO QDAY [facility] Last Admin: 12/30/16 10:59 Dose: 5 mg Promethazine HCl (Phenergan) 25 mg SC Q6H PRN PRN Reason: Nausea And Vomiting Sodium Chloride (Sodium Chloride Flush Syringe 10 Ml) 10 ml IV PRN [facility] Review of Systems All systems: negative Constitutional: poor appetite Cardiovascular: lightheadedness, no chest pain Respiratory: no cough, no shortness of breath Gastrointestinal: no nausea, no vomiting Genitourinary Female: no dysuria Musculoskeletal: gait dysfunction, other (left knee pain) Exam - Constitutional Vitals: Vital Signs - 12hr 12/30/16 12/30/16 12/30/16 08:00 11:00 11:08 Temperature 98.4 F 98.6 F Pulse Rate 44 L Pulse Rate [ 50 L 44 L Left] Respiratory 16 20 Rate Blood Pressure 105/52 Blood Pressure 105/52 [Left Arm] O2 Sat by Pulse 98 Oximetry 12/30/16 11:10 Temperature Pulse Rate 44 L Pulse Rate [ Left] Respiratory Rate Blood Pressure 105/52 Blood Pressure [Left Arm] O2 Sat by Pulse Oximetry General appearance: no acute distress, other (sitting up in bed) - EENT Eyes: EOM intact ENT: hearing intact - Neck Neck: supple, normal ROM - Respiratory Respiratory effort: normal Respiratory: bilateral: CTA - Cardiovascular Heart Sounds: Present: S1 & S2 (bradycardic) - Extremities Extremity abnormal: edema (minimal at BLE), other (left knee with post-op dressing and cryo-Cuff in place; able to DF/PF bilaterally) - Gastrointestinal General gastrointestinal: Present: soft, non-tender, non-distended, normal bowel sounds - Musculoskeletal Musculoskeletal: other (BUE- WNL; RLE- 4/5 strength) - Neurologic Neurologic: CNII-XII intact, other (sensation grossly intact) - Psychiatric Psychiatric: appropriate mood/affect, intact judgment & insight, memory intact, cooperative - Allied health notes Allied health notes reviewed: PT (supervision to Anne Marie for bed mobility; min- modA for transfers; modA for 30 feet with RW) FIMS assesment as documented by PT/OT/ST: Locomotion- walk/wheelchair Ambulation Distance 0 - Labs CBC & Chem 7: 12/30/16 04:40 12/30/16 04:40 Labs: Laboratory Results - last 72 hr 12/29/16 12/29/16 12/29/16 10:00 10:05 15:05 WBC RBC Hgb Hct MCV MCH MCHC RDW Plt Count Add Manual Diff Total Counted Seg Neutrophils % Seg Neuts % (Manual) Band Neutrophils % Lymphocytes % (Manual) Reactive Lymphs % (Man) Monocytes % (Manual) Eosinophils % (Manual) Basophils % (Manual) Metamyelocytes % Myelocytes % Promyelocytes % Blast Cells % Nucleated RBC % Seg Neutrophils # Man Band Neutrophils # Lymphocytes # (Manual) Abs React Lymphs (Man) Monocytes # (Manual) Eosinophils # (Manual) Basophils # (Manual) Metamyelocytes # Myelocytes # Promyelocytes # Blast Cells # WBC Morphology Hypersegmented Neuts Hyposegmented Neuts Hypogranular Neuts Smudge Cells Toxic Granulation Toxic Vacuolation Dohle Bodies Pelger-Huet Anomaly Amrik Rods Platelet Estimate Clumped Platelets Plt Clumps, EDTA Large Platelets Giant Platelets Platelet Satelliting Plt Morphology Comment RBC Morphology Dimorphic RBCs Polychromasia Hypochromasia Poikilocytosis Anisocytosis Microcytosis Macrocytosis Spherocytes Pappenheimer Bodies Sickle Cells Target Cells Tear Drop Cells Ovalocytes Helmet Cells Trevino-Aldrich Bodies Hawkins Rings Rickey Cells Bite Cells Crenated Cell Elliptocytes Acanthocytes (Spur) Rouleaux Hemoglobin C Crystals Schistocytes Malaria parasites Manny Bodies Hem Pathologist Commnt PT INR Sodium Potassium Chloride Carbon Dioxide Anion Gap BUN Creatinine Estimated GFR BUN/Creatinine Ratio Glucose POC Glucose 116 H 191 H Calcium Blood Type B POSITIVE Antibody Screen Negative 12/29/16 12/29/16 12/30/16 17:05 22:41 04:40 WBC 9.8 RBC 3.35 L Hgb 9.8 L Hct 31.3 MCV 94 MCH 29 MCHC 32 RDW 15.5 H Plt Count 224 Add Manual Diff Complete Total Counted 100 Seg Neutrophils % Branch Account Executive Seg Neuts % (Manual) 78.0 H Band Neutrophils % 12.0 Lymphocytes % (Manual) 4.0 L Reactive Lymphs % (Man) 0 Monocytes % (Manual) 6.0 Eosinophils % (Manual) 0 Basophils % (Manual) 0 Metamyelocytes % 0 Myelocytes % 0 Promyelocytes % 0 Blast Cells % 0 Nucleated RBC % Not Reportable Seg Neutrophils # Man 7.6 Band Neutrophils # 1.2 Lymphocytes # (Manual) 0.4 L Abs React Lymphs (Man) 0.0 Monocytes # (Manual) 0.6 Eosinophils # (Manual) 0.0 Basophils # (Manual) 0.0 Metamyelocytes # 0.0 Myelocytes # 0.0 Promyelocytes # 0.0 Blast Cells # 0.0 WBC Morphology Not Reportable Hypersegmented Neuts Not Reportable Hyposegmented Neuts Not Reportable Hypogranular Neuts Not Reportable Smudge Cells Not Reportable Toxic Granulation Not Reportable Toxic Vacuolation Not Reportable Dohle Bodies Not Reportable Pelger-Huet Anomaly Not Reportable Amrik Rods Not Reportable Platelet Estimate Consistent w auto Clumped Platelets Not Reportable Plt Clumps, EDTA Not Reportable Large Platelets Not Reportable Giant Platelets Not Reportable Platelet Satelliting Not Reportable Plt Morphology Comment Not Reportable RBC Morphology Normal Dimorphic RBCs Not Reportable Polychromasia Not Reportable Hypochromasia Not Reportable Poikilocytosis Not Reportable Anisocytosis Not Reportable Microcytosis Not Reportable Macrocytosis Not Reportable Spherocytes Not Reportable Pappenheimer Bodies Not Reportable Sickle Cells Not Reportable Target Cells Not Reportable Tear Drop Cells Not Reportable Ovalocytes Not Reportable Helmet Cells Not Reportable Trevino-Aldrich Bodies Not Reportable Hawkins Rings Not Reportable [place] Cells Not Reportable Bite Cells Not Reportable Crenated Cell Not Reportable Elliptocytes Not Reportable Acanthocytes (Spur) Not Reportable Rouleaux Not Reportable Hemoglobin C Crystals Not Reportable Schistocytes Not Reportable Malaria parasites Not Reportable Manny Bodies Not Reportable Hem Pathologist Commnt No PT INR Sodium Potassium Chloride Carbon Dioxide Anion Gap BUN Creatinine Estimated GFR BUN/Creatinine Ratio Glucose POC Glucose 221 H 251 H Calcium Blood Type Antibody Screen 12/30/16 12/30/16 12/30/16 04:40 04:40 06:28 WBC RBC Hgb Hct MCV MCH MCHC RDW Plt Count Add Manual Diff Total Counted Seg Neutrophils % Seg Neuts % (Manual) Band Neutrophils % Lymphocytes % (Manual) Reactive Lymphs % (Man) Monocytes % (Manual) Eosinophils % (Manual) Basophils % (Manual) Metamyelocytes % Myelocytes % Promyelocytes % Blast Cells % Nucleated RBC % Seg Neutrophils # Man Band Neutrophils # Lymphocytes # (Manual) Abs React Lymphs (Man) Monocytes # (Manual) Eosinophils # (Manual) Basophils # (Manual) Metamyelocytes # Myelocytes # Promyelocytes # Blast Cells # WBC Morphology Hypersegmented Neuts Hyposegmented Neuts Hypogranular Neuts Smudge Cells Toxic Granulation Toxic Vacuolation Dohle Bodies Pelger-Huet Anomaly Amrik Rods Platelet Estimate Clumped Platelets Plt Clumps, EDTA Large Platelets Giant Platelets Platelet Satelliting Plt Morphology Comment RBC Morphology Dimorphic RBCs Polychromasia Hypochromasia Poikilocytosis Anisocytosis Microcytosis Macrocytosis Spherocytes Pappenheimer Bodies Sickle Cells Target Cells Tear Drop Cells Ovalocytes Helmet Cells Trevino-Aldrich Bodies Hawkins Rings Rickey Cells Bite Cells Crenated Cell Elliptocytes Acanthocytes (Spur) Rouleaux Hemoglobin C Crystals Schistocytes Malaria parasites Manny Bodies Hem Pathologist Commnt PT 14.4 INR 1.13 Sodium 130 L Potassium 5.4 H Chloride 96.1 L Carbon Dioxide 17 L Anion Gap 22 BUN 22 H Creatinine 1.2 Estimated GFR 45 BUN/Creatinine Ratio 18.33 Glucose 227 H POC Glucose 266 H Calcium 7.3 L Blood Type Antibody Screen 12/30/16 12:09 WBC RBC Hgb Hct MCV MCH MCHC RDW Plt Count Add Manual Diff Total Counted Seg Neutrophils % Seg Neuts % (Manual) Band Neutrophils % Lymphocytes % (Manual) Reactive Lymphs % (Man) Monocytes % (Manual) Eosinophils % (Manual) Basophils % (Manual) Metamyelocytes % Myelocytes % Promyelocytes % Blast Cells % Nucleated RBC % Seg Neutrophils # Man Band Neutrophils # Lymphocytes # (Manual) Abs React Lymphs (Man) Monocytes # (Manual) Eosinophils # (Manual) Basophils # (Manual) Metamyelocytes # Myelocytes # Promyelocytes # Blast Cells # WBC Morphology Hypersegmented Neuts Hyposegmented Neuts Hypogranular Neuts Smudge Cells Toxic Granulation Toxic Vacuolation Dohle Bodies Pelger-Huet Anomaly Amrik Rods Platelet Estimate Clumped Platelets Plt Clumps, EDTA Large Platelets Giant Platelets Platelet Satelliting Plt Morphology Comment RBC Morphology Dimorphic RBCs Polychromasia Hypochromasia Poikilocytosis Anisocytosis Microcytosis Macrocytosis Spherocytes Pappenheimer Bodies Sickle Cells Target Cells Tear Drop Cells Ovalocytes Helmet Cells Trevino-Aldrich Bodies Hawkins Rings [place] Cells Bite Cells Crenated Cell Elliptocytes Acanthocytes (Spur) Rouleaux Hemoglobin C Crystals Schistocytes Malaria parasites Manny Bodies Hem Pathologist Commnt PT INR Sodium Potassium Chloride Carbon Dioxide Anion Gap BUN Creatinine Estimated GFR BUN/Creatinine Ratio Glucose POC Glucose 185 H Calcium Blood Type Antibody Screen Assessment and Plan Patient was assessed and evaluated for Acute Inpatient Rehab Unit. 66 y.o. female with severe RA, now s/p left TKA. Post-op course significant for bradycardia, hyperkalemia, hyponatremia; Pending Cardiology consult. Rehab options discussed in detail with patient; reports being independent prior to admission and would like to return home independently after discharge. Pt is currently requiring supervision to Anne Marie for bed mobility and min-modA for transfers and gait. Pt is not currently safe to return home alone and would benefit from IRU admission to complete aggressive therapies and for ongoing medical management. Current barriers and potential complications to discharge include limited mobility, balance, strength; bradycardia with risk of syncope, hyperkalemia with risk of arrhythmia, hyponatremia, hypertension, hypoglycemia. Pt is thought to be able to participate in 3 hours of therapy, 5 days per week and make reasonable functional improvement with high likelihood of returning to the community at discharge. Pt has good rehab potential, good overall medical prognosis and is motivated to participate. Will need ongoing medical management as noted and clearance prior to IRU admission after Cardiology consultation; also for management of HTN and DM. Will continue to follow. Thank you for consultation. - Patient Problems (1) Primary osteoarthritis of left knee Current Visit: Yes Status: Acute (2) Status post total left knee replacement Current Visit: Yes Status: Acute (3) Rheumatoid arthritis Current Visit: Yes Status: Chronic Qualifiers: Rheumatoid arthritis location: hand Rheumatoid factor presence: R Laterality: bilateral (4) Bradycardia Current Visit: Yes Status: Acute (5) Hyperkalemia Current Visit: Yes Status: Acute (6) Hyponatremia Current Visit: Yes Status: Acute (7) HTN (hypertension) Current Visit: Yes Status: Chronic Qualifiers: Hypertension type: essential hypertension Qualified Code(s): I10 - Essential (primary) hypertension (8) T2DM (type 2 diabetes mellitus) Current Visit: Yes Status: Chronic Qualifiers: Diabetes mellitus complication status: with hyperglycemia Diabetes mellitus complication detail: D Diabetic retinopathy severity: D Proliferative retinopathy type: P Diabetes mellitus macular edema: D Diabetes mellitus care home insulin use: without care home use Laterality: L Chronic kidney disease stage: C Qualified Code(s): E11.65 - Type 2 diabetes mellitus with hyperglycemia
--- NOTE | 2016-12-30 14:37 | Consultation ---
History of Present Illness Consult date: 12/30/16 Requesting physician: GILLIAN MENJIVAR Consult reason: bradycardia History of present illness: The patient is a 66 year old female with a history of hypertension, diabetes, hypothyroidism, rheumatoid arthritis who underwent left total knee replacement by Dr. Menjivar yesterday. Post-operatively, she has been bradycardic with HR in the 40s. She admits to some lightheadedness upon standing and mild shortness of breath with exertion. No chest pain. Potassium 5.4. Echo done 12/2016 showed EF 55-60%. Stress test done 08/2014 was negative for ischemia. Past History Past Medical History: arthritis (Severe RA), diabetes, hypertension Past Surgical History: total knee replacement (s/p left total knee) Social history: no significant social history, lives with family. denies: smoking, alcohol abuse, prescription drug abuse, IV drug use Family history: hypertension Medications and Allergies Allergies Allergy/AdvReac Type Severity Reaction Status Date / Time infliximab [From Remicade] Allergy Itching Verified 12/26/16 10:43 methotrexate AdvReac Anaphylaxis Verified 12/26/16 10:43 Home Medications Medication Instructions Recorded Confirmed Last Taken Type Abatacept [Orencia] 500 mg SQ Q4W 12/26/16 12/26/16 12/28/16 History Brinzolamide [Azopt 1%] 1 drop INTRAOCULA BID 12/26/16 12/26/16 12/28/16 History Calcium Carbonate 400 mg PO BID 12/26/16 12/26/16 12/28/16 History Cholecalciferol Vit D3 [Vitamin D3] 1,000 unit PO BID 12/26/16 12/26/16 History Diclofenac Sodium 75 mg PO BID 12/26/16 12/29/16 1 Week Ago History Folic Acid 0.4 mg PO QDAY 12/26/16 12/26/16 12/28/16 History Hydrochlorothiazide [Hctz] 12.5 mg PO QDAY 12/26/16 12/26/16 12/28/16 History Leflunomide [Arava] 5 mg PO QDAY 12/26/16 12/29/16 1 Week Ago History Levothyroxine [Synthroid] 88 mcg PO QAM 12/26/16 12/26/16 12/29/16 08:00 History Losartan [Cozaar] 100 mg PO QDAY 12/26/16 12/29/16 12/29/16 08:00 History Prednisone [predniSONE (Bennie) ER 5 mg PO QDAY 12/26/16 12/29/16 12/29/16 08:00 History TAB] Ranitidine HCl [Heartburn Relief] 150 mg PO BID 12/26/16 12/26/16 12/28/16 History Rosuvastatin (Nf) [Crestor] 2.5 mg PO Q48HR 12/26/16 12/26/16 12/28/16 History Sitagliptin/Metformin (Nf) 1 tab PO BID 12/26/16 12/26/16 12/28/16 History [Janumet 50-1,000 mg (Nf)] Travoprost 0.004% Eye Drop 1 drop INTRAOCULA QHS 12/26/16 12/26/16 12/28/16 History amLODIPine [Norvasc] 5 mg PO DAILY 12/26/16 12/26/16 12/29/16 08:00 History traMADol [Ultram 50 MG tab] 50 mg PO PRN PRN 12/26/16 12/26/16 12/28/16 History Acetaminophen [Shake That Ache] 2 tab PO ONCE 12/29/16 12/29/16 12/29/16 08:00 History Celecoxib [Celecoxib] 1 tab PO ONCE 12/29/16 12/29/16 12/29/16 08:00 History Gabapentin [Gabapentin] 1 tab PO ONCE 12/29/16 12/29/16 12/29/16 08:00 History Oxycodone HCl [Oxycontin] 10 mg PO ONCE 12/29/16 12/29/16 12/29/16 08:00 History Active Meds: Active Medications Acetaminophen (Tylenol) 650 mg PO Q4H PRN PRN Reason: Pain MILD(1-3)/Fever >100.5/FRENCH Amlodipine Besylate (Norvasc) 5 mg PO DAILY [facility] Last Admin: 12/30/16 11:08 Dose: Not Given Aspirin (Aspirin) 325 mg PO BID [facility] Last Admin: 12/30/16 11:00 Dose: 325 mg Atorvastatin Calcium (Lipitor) 5 mg PO Q48H [facility] Calcium Carbonate/Glycine (Tums) 500 mg PO BID [facility] Last Admin: 12/30/16 11:00 Dose: 500 mg Celecoxib (Celebrex) mg PO ONCE [facility] Cholecalciferol (Vitamin D3) 1,000 unit PO BID [facility] Last Admin: 12/30/16 11:00 Dose: 1,000 unit Famotidine (Pepcid) 20 mg PO BID [facility] Last Admin: 12/30/16 10:58 Dose: 20 mg Hydrochlorothiazide (Hctz) 12.5 mg PO QDAY [facility] Last Admin: 12/30/16 11:09 Dose: Not Given Sodium Chloride (Nacl 0.9% 1000 Ml) 1,000 mls @ 100 mls/hr IV DIRECT [facility] Last Admin: 12/29/16 10:20 Dose: 100 mls/hr Insulin Aspart (Novolog) 0 units SUB-Q Q12H [facility] PRN Reason: Protocol Latanoprost (Xalatan 0.005%) 1 drops OU QPM [facility] Levothyroxine Sodium (Synthroid) 88 mcg PO QAM [facility] Last Admin: 12/30/16 11:07 Dose: Not Given Linagliptin (Tradjenta) 5 mg PO BIDDIAB [facility] Last Admin: 12/30/16 11:04 Dose: 5 mg Losartan Potassium (Cozaar) 100 mg PO QDAY [facility] Last Admin: 12/30/16 11:10 Dose: Not Given Magnesium Hydroxide (Milk Of Magnesia) 30 ml PO Q4H PRN PRN Reason: Constipation Metformin HCl (Glucophage) 1,000 mg PO BIDDIAB [facility] Miscellaneous Medication (Brinzolamide [Azopt 1%]) 1 drop INTRAOCULA BID [facility] Last Admin: 12/30/16 11:12 Dose: Not Given Miscellaneous Medication (Folic Acid [Folic Acid]) 0.4 mg PO QDAY [facility] Ondansetron HCl (Zofran) 4 mg IV Q8H PRN PRN Reason: Nausea And Vomiting Oxycodone HCl (Roxicodone) 5 mg PO Q4H PRN PRN Reason: Pain, Moderate (4-6) Prednisone (Deltasone) 5 mg PO QDAY [facility] Last Admin: 12/30/16 10:59 Dose: 5 mg Promethazine HCl (Phenergan) 25 mg PA Q6H PRN PRN Reason: Nausea And Vomiting Sodium Chloride (Sodium Chloride Flush Syringe 10 Ml) 10 ml IV PRN [facility] Review of Systems Constitutional: no fever, no chills Ears, nose, mouth and throat: no nasal congestion, no nasal discharge, no sinus pressure Cardiovascular: dyspnea on exertion, no chest pain, no orthopnea, no palpitations, no syncope Respiratory: dyspnea on exertion Gastrointestinal: no abdominal pain, no nausea, no vomiting, no diarrhea Genitourinary Female: no dysuria, no urgency Musculoskeletal: no neck stiffness, no neck pain Integumentary: no rash, no pruritis Neurological: no parathesias, no numbness, no tingling, no headaches Endocrine: no cold intolerance, no heat intolerance Hematologic/Lymphatic: no easy bruising, no easy bleeding Allergic/Immunologic: no urticaria, no wheezing Physical Examination Vital Signs Temp Pulse Resp BP 97.1 F L 64 18 120/70 12/26/16 14:30 12/26/16 14:30 12/26/16 14:30 12/26/16 14:30 General appearance: no acute distress HEENT: Positive: Normocephaly, Mucus Membranes Moist Neck: Positive: neck supple, trachea midline Cardiac: Positive: Reg Rate and Rhythm, S1/S2 Lungs: Positive: clear to auscultation Neuro: Positive: Grossly Intact Abdomen: Positive: Soft, Active Bowel Sounds. Negative: Tender Skin: Negative: Rash Extremities: Absent: edema Results 12/30/16 04:40 12/30/16 04:40 Coagulation 12/30/16 Range/Units 04:40 PT 14.4 (12.2-14.9) Sec. INR 1.13 (0.87-1.13) CBC 12/30/16 Range/Units 04:40 WBC 9.8 (4.5-11.0) K/mm3 RBC 3.35 L (3.65-5.03) M/mm3 Hgb 9.8 L (10.1-14.3) gm/dl Hct 31.3 (30.3-42.9) % Plt Count 224 (140-440) K/mm3 Comprehensive Metabolic Panel 12/30/16 Range/Units 04:40 Sodium 130 L (137-145) mmol/L Potassium 5.4 H (3.6-5.0) mmol/L Chloride 96.1 L (98-107) mmol/L Carbon Dioxide 17 L (22-30) mmol/L BUN 22 H (7-17) mg/dL Creatinine 1.2 (0.7-1.2) mg/dL Glucose 227 H (65-100) mg/dL Calcium 7.3 L (8.4-10.2) mg/dL - Imaging and Cardiology Echo: report reviewed (12/2016: EF 55-60%) EKG: pending Assessment and Plan Sinus bradycardia Echo 12/2016: EF 55-60% obtain [address] on remote telemetery obtain TSH and free T4 avoid AV blocking medications S/p left total knee replacement Hyperkalemia d/c losartan BMP in am Hypertension BP currently low normal norvasc and losartan on hold Diabetes Place on remote telemetry. Obtain 12 lead EKG, TSH and free T4. Avoid AV blocking medications. The patient has been seen in conjunction with Dr. Mcintyre who agrees with the assessment and plan of care. Thank you Dr. Menjivar for allowing us to participate in the care of this patient.
[2016-12-30] MEDS: ROXICODONE PO PRN (17:00)
[2016-12-30] MEDS: XALATAN 0.005% OU SCH (18:00)
[2016-12-31] MEDS: ANCEF/NS 1 GM/50 ML 1 GM/50 ML BAG IV SCH (01:53)
[2016-12-31] MEDS: NON-FORMULARY (Brinzolamide [Azopt 1%] 1 DROP) INTRAOCULA SCH ×2 (01:54→10:40)
[2016-12-31] MEDS: TRANEXAMIC ACID 1,000 MG in NACL 0.9% 100 ML IV NR (01:56)
[2016-12-31] MEDS: NOVOLOG SUB-Q SCH ×3 (01:58→23:35)
[2016-12-31] MEDS: XALATAN 0.005% OU SCH ×2 (01:58→17:40)
[2016-12-31] MEDS: ROXICODONE PO PRN (04:06)
[2016-12-31] MEDS ORDERED: CEPACOL X STRENGTH MM PRN (04:15)
[2016-12-31 05:30] LABS: Anion Gap 21 mmol/L; Blood Urea Nitrogen 14 mg/dL (7-17); Calcium 7.8 mg/dL (8.4-10.2); Carbon Dioxide 18 mmol/L (22-30); Chloride 99.5 mmol/L (98-107); Glucose 134 mg/dL (65-100); Sodium 134 mmol/L (137-145)
[2016-12-31 05:33] LABS: Potassium 4.1 mmol/L (3.6-5.0)
[2016-12-31] MEDS: NACL 0.9% 1000 ML 1,000 ML IV SCH (05:34)
[2016-12-31] MEDS: TUMS PO SCH ×2 (09:51→22:26)
[2016-12-31] MEDS: VITAMIN D3 PO SCH ×2 (09:51→22:26)
[2016-12-31] MEDS: HCTZ PO SCH (09:51)
[2016-12-31] MEDS: DELTASONE PO SCH (09:51)
[2016-12-31] MEDS: ASPIRIN PO SCH ×2 (09:51→22:26)
[2016-12-31] MEDS: SYNTHROID PO SCH (09:51)
[2016-12-31] MEDS: NORVASC PO SCH (09:52)
[2016-12-31] MEDS: GLUCOPHAGE PO SCH ×2 (09:53→17:37)
[2016-12-31] MEDS: PEPCID PO SCH ×2 (09:53→22:26)
[2016-12-31] MEDS ORDERED: ROSUVASTATIN PO SCH (10:00)
--- NOTE | 2016-12-31 10:07 | XRay Report ---
AP CHEST: HISTORY: Fever, chest pain No comparison. There is poor inspiration. Grossly, the lungs are clear. No large consolidation, pleural effusion or pneumothorax. Heart size is within normal limits. IMPRESSION: Negative expiratory chest x-ray.
--- NOTE | 2016-12-31 10:26 | Progress Note ---
Assessment and Plan Assessment and plan: 1. Total knee arthroplasty. Continue PT/OT postoperatively. Pain control. Patient likely would need rehab placement. 2. ? Diarrhea. Nursing reports Patient with loose but formed stools. Patient did receive Kayexalate yesterday. 3. Hypertension. Continue Norvasc. 4. Rheumatoid arthritis flare. Start IV steroids. 5. Type 2 diabetes mellitus. Continue metformin and sliding scale coverage. 6. Dyspnea. Check chest x-ray and d-dimer. 7. Fever. Check urinalysis and blood cultures. History Interval history: Patient states that she is restless and has joint pain all over. Patient complained of diarrhea. Hospitalist Physical - Constitutional Vitals: Temp Pulse Resp BP Pulse Ox 101.1 F H 84 18 154/93 100 12/31/16 09:03 12/31/16 09:52 12/31/16 09:03 12/31/16 09:52 12/31/16 10:00 General appearance: Present: mild distress (appears uncomfortable but nontoxic) - EENT Eyes: Present: PERRL, EOM intact ENT: hearing intact, clear oral mucosa, dentition normal - Neck Neck: Present: supple, normal ROM - Respiratory Respiratory effort: normal Respiratory: bilateral: CTA - Cardiovascular Rhythm: regular Heart Sounds: Present: S1 & S2. Absent: gallop, rub - Extremities Extremities: no ischemia, No edema, Full ROM - Abdominal General gastrointestinal: soft, non-tender, non-distended, normal bowel sounds - Integumentary Integumentary: Present: clear, warm, dry - Neurologic Neurologic: CNII-XII intact, moves all extremities Results - Labs CBC & Chem 7: 12/30/16 04:40 12/31/16 04:44 Labs: Laboratory Last Values WBC 9.8 K/mm3 (4.5-11.0) 12/30/16 04:40 RBC 3.35 M/mm3 (3.65-5.03) L 12/30/16 04:40 Hgb 9.8 gm/dl (10.1-14.3) L 12/30/16 04:40 Hct 31.3 % (30.3-42.9) 12/30/16 04:40 MCV 94 fl (79-97) 12/30/16 04:40 MCH 29 pg (28-32) 12/30/16 04:40 MCHC 32 % (30-34) 12/30/16 04:40 RDW 15.5 % (13.2-15.2) H 12/30/16 04:40 Plt Count 224 K/mm3 (140-440) 12/30/16 04:40 Add Manual Diff Complete 12/30/16 04:40 Total Counted 100 12/30/16 04:40 Seg Neutrophils % Chief Internal Auditor 12/30/16 04:40 Seg Neuts % (Manual) 78.0 % (40.0-70.0) H 12/30/16 04:40 Band Neutrophils % 12.0 % 12/30/16 04:40 Lymphocytes % (Manual) 4.0 % (13.4-35.0) L 12/30/16 04:40 Reactive Lymphs % (Man) 0 % 12/30/16 04:40 Monocytes % (Manual) 6.0 % (0.0-7.3) 12/30/16 04:40 Eosinophils % (Manual) 0 % (0.0-4.3) 12/30/16 04:40 Basophils % (Manual) 0 % (0.0-1.8) 12/30/16 04:40 Metamyelocytes % 0 % 12/30/16 04:40 Myelocytes % 0 % 12/30/16 04:40 Promyelocytes % 0 % 12/30/16 04:40 Blast Cells % 0 % 12/30/16 04:40 Nucleated RBC % Not Reportable 12/30/16 04:40 Seg Neutrophils # Man 7.6 K/mm3 (1.8-7.7) 12/30/16 04:40 Band Neutrophils # 1.2 K/mm3 12/30/16 04:40 Lymphocytes # (Manual) 0.4 K/mm3 (1.2-5.4) L 12/30/16 04:40 Abs React Lymphs (Man) 0.0 K/mm3 12/30/16 04:40 Monocytes # (Manual) 0.6 K/mm3 (0.0-0.8) 12/30/16 04:40 Eosinophils # (Manual) 0.0 K/mm3 (0.0-0.4) 12/30/16 04:40 Basophils # (Manual) 0.0 K/mm3 (0.0-0.1) 12/30/16 04:40 Metamyelocytes # 0.0 K/mm3 12/30/16 04:40 Myelocytes # 0.0 K/mm3 12/30/16 04:40 Promyelocytes # 0.0 K/mm3 12/30/16 04:40 Blast Cells # 0.0 K/mm3 12/30/16 04:40 WBC Morphology Not Reportable 12/30/16 04:40 Hypersegmented Neuts Not Reportable 12/30/16 04:40 Hyposegmented Neuts Not Reportable 12/30/16 04:40 Hypogranular Neuts Not Reportable 12/30/16 04:40 Smudge Cells Not Reportable 12/30/16 04:40 Toxic Granulation Not Reportable 12/30/16 04:40 Toxic Vacuolation Not Reportable 12/30/16 04:40 Dohle Bodies Not Reportable 12/30/16 04:40 Pelger-Huet Anomaly Not Reportable 12/30/16 04:40 Amrik Rods Not Reportable 12/30/16 04:40 Platelet Estimate Consistent w auto 12/30/16 04:40 Clumped Platelets Not Reportable 12/30/16 04:40 Plt Clumps, EDTA Not Reportable 12/30/16 04:40 Large Platelets Not Reportable 12/30/16 04:40 Giant Platelets Not Reportable 12/30/16 04:40 Platelet Satelliting Not Reportable 12/30/16 04:40 Plt Morphology Comment Not Reportable 12/30/16 04:40 RBC Morphology Normal 12/30/16 04:40 Dimorphic RBCs Not Reportable 12/30/16 04:40 Polychromasia Not Reportable 12/30/16 04:40 Hypochromasia Not Reportable 12/30/16 04:40 Poikilocytosis Not Reportable 12/30/16 04:40 Anisocytosis Not Reportable 12/30/16 04:40 Microcytosis Not Reportable 12/30/16 04:40 Macrocytosis Not Reportable 12/30/16 04:40 Spherocytes Not Reportable 12/30/16 04:40 Pappenheimer Bodies Not Reportable 12/30/16 04:40 Sickle Cells Not Reportable 12/30/16 04:40 Target Cells Not Reportable 12/30/16 04:40 Tear Drop Cells Not Reportable 12/30/16 04:40 Ovalocytes Not Reportable 12/30/16 04:40 Helmet Cells Not Reportable 12/30/16 04:40 Trevino[place] Bodies Not Reportable 12/30/16 04:40 [place] Rings Not Reportable 12/30/16 04:40 Rickey Cells Not Reportable 12/30/16 04:40 Bite Cells Not Reportable 12/30/16 04:40 Crenated Cell Not Reportable 12/30/16 04:40 Elliptocytes Not Reportable 12/30/16 04:40 Acanthocytes (Spur) Not Reportable 12/30/16 04:40 Rouleaux Not Reportable 12/30/16 04:40 Hemoglobin C Crystals Not Reportable 12/30/16 04:40 Schistocytes Not Reportable 12/30/16 04:40 Malaria parasites Not Reportable 12/30/16 04:40 Manny Bodies Not Reportable 12/30/16 04:40 Hem Pathologist Commnt No 12/30/16 04:40 PT 14.4 Sec. (12.2-14.9) 12/30/16 04:40 INR 1.13 (0.87-1.13) 12/30/16 04:40 Sodium 134 mmol/L (137-145) L 12/31/16 04:44 Potassium 4.1 mmol/L (3.6-5.0) D 12/31/16 04:44 Chloride 99.5 mmol/L (98-107) 12/31/16 04:44 Carbon Dioxide 18 mmol/L (22-30) L 12/31/16 04:44 Anion Gap 21 mmol/L 12/31/16 04:44 BUN 14 mg/dL (7-17) 12/31/16 04:44 Creatinine 0.8 mg/dL (0.7-1.2) 12/31/16 04:44 Estimated GFR > 60 ml/min 12/31/16 04:44 BUN/Creatinine Ratio 17.50 % 12/31/16 04:44 Glucose 134 mg/dL (65-100) H 12/31/16 04:44 POC Glucose 160 (70-105) H 12/30/16 21:59 Calcium 7.8 mg/dL (8.4-10.2) L 12/31/16 04:44 TSH 0.525 mlU/mL (0.270-4.200) 12/30/16 15:12 Free T4 2.00 ng/dL (0.76-1.46) H 12/30/16 15:12 Blood Type B POSITIVE 12/29/16 10:00 Antibody Screen Negative 12/29/16 10:00
[2016-12-31] MEDS: TRADJENTA PO SCH ×2 (11:10→17:37)
[2016-12-31] MEDS: TORADOL IV SCH (11:11)
--- NOTE | 2016-12-31 11:20 | Progress Note ---
Assessment and Plan 66yo [place] woman: Sinus bradycardia resolved now Echo 12/2016: EF 55-60% S/p left total knee replacement Hyperkalemia d/c losartan BMP in am Hypertension BP currently low normal norvasc and losartan on hold Diabetes DVT prophylaxis per primary and surgery Subjective Date of service: 12/31/16 Interval history: knee pain Objective Vital Signs Temp Pulse Pulse Pulse Pulse Resp BP 12/31/16 10:00 12/31/16 09:52 84 154/93 12/31/16 09:03 101.1 F H 84 18 12/31/16 05:06 18 12/31/16 04:06 20 12/31/16 03:45 98.8 F 81 20 12/30/16 23:29 98.8 F 77 20 12/30/16 20:00 70 12/30/16 19:10 98.3 F 71 20 12/30/16 16:30 97.7 F 70 16 BP BP Pulse Ox 12/31/16 10:00 100 12/31/16 09:52 12/31/16 09:03 154/93 99 12/31/16 05:06 12/31/16 04:06 12/31/16 03:45 187/90 100 12/30/16 23:29 178/75 95 12/30/16 20:00 12/30/16 19:10 165/70 98 12/30/16 16:30 159/67 98 - Physical Examination HEENT: Positive: Normocephaly, Mucus Membranes Moist Neck: Positive: neck supple, trachea midline Neuro: Positive: Grossly Intact Abdomen: Positive: Soft, Active Bowel Sounds. Negative: Tender Skin: Negative: Rash Extremities: Absent: edema - Labs and Meds Comprehensive Metabolic Panel 12/31/16 Range/Units 04:44 Sodium 134 L (137-145) mmol/L Potassium 4.1 D (3.6-5.0) mmol/L Chloride 99.5 (98-107) mmol/L Carbon Dioxide 18 L (22-30) mmol/L BUN 14 (7-17) mg/dL Creatinine 0.8 (0.7-1.2) mg/dL Glucose 134 H (65-100) mg/dL Calcium 7.8 L (8.4-10.2) mg/dL - Imaging and Cardiology EKG: pending Echo: report reviewed (12/2016: EF 55-60%)
[2016-12-31] MEDS: LEVAQUIN 500MG/100ML 500 MG/100 ML BAG IV SCH (15:19)
[2016-12-31] MEDS: MORPHINE IV PRN ×2 (15:23→22:24)
[2016-12-31 16:34] LABS: Bilirubin,Urine NEG (Negative); Blood,Urine SM (Negative); Ketones,Urine TR mg/dL (Negative); Leukocyte Esterase,Urine NEG (Negative); Mucus,Urine FEW /HPF; Nitrite,Urine NEG (Negative); Protein,Urine <15 mg/dL mg/dL (Negative); Urobilinogen,Urine < 2.0 mg/dL (<2.0); WBC,Urine < 1.0 /HPF (0.0-6.0)
[2016-12-31] MEDS ORDERED: DELTASONE PO ONE (23:00)
[2017-01-01] MEDS: TORADOL IV SCH (00:02)
[2017-01-01] MEDS: NON-FORMULARY (Brinzolamide [Azopt 1%] 1 DROP) INTRAOCULA SCH ×3 (00:06→22:00)
[2017-01-01 06:38] LABS: Hematocrit 30.8 % (30.3-42.9); Hemoglobin 9.9 gm/dl (10.1-14.3); Mean Corpuscular HGB Conc 32 % (30-34); Mean Corpuscular Hemoglobin 29 pg (28-32); Platelet Count 204 K/mm3 (140-440); Red Blood Count 3.43 M/mm3 (3.65-5.03); White Blood Count 10.3 K/mm3 (4.5-11.0)
[2017-01-01 06:45] LABS: Anion Gap 19 mmol/L; BUN/Creatinine Ratio 11.25; Blood Urea Nitrogen 9 mg/dL (7-17); Calcium 8.3 mg/dL (8.4-10.2); Carbon Dioxide 22 mmol/L (22-30); Chloride 96.1 mmol/L (98-107); Glucose 175 mg/dL (65-100); Potassium 4.4 mmol/L (3.6-5.0); Sodium 133 mmol/L (137-145)
[2017-01-01] MEDS: SYNTHROID PO SCH (07:07)
[2017-01-01 07:09] LABS: Mean Corpuscular Volume 92 fl (79-97)
[2017-01-01 08:06] LABS: Anisocytosis RARE; Basophils % (Manual) 0 % (0.0-1.8); Blastocytes % (Manual) 0 %; Diff Status Complete; Eosinophils % (Manual) 0 % (0.0-4.3); Hypochromasia Rare
[2017-01-01] MEDS: GLUCOPHAGE PO SCH ×2 (08:35→18:13)
[2017-01-01] MEDS: TRADJENTA PO SCH ×2 (08:35→18:13)
--- NOTE | 2017-01-01 11:55 | Progress Note ---
Subjective Date of service: 01/01/17 Interval history: patient a lot better, comfortable, avss, nvi dressing dry pain under control a/p continue followup with medicine recomemndations regarding the steroids. pt/ot dvt Objective Vital signs: Vital Signs - 12hr 01/01/17 01/01/17 01/01/17 00:00 00:02 00:32 Temperature 99.0 F Pulse Rate [ Apical] Pulse Rate [ 77 Right From Monitor] Respiratory 20 20 18 Rate Blood Pressure 160/81 [Right Arm] O2 Sat by Pulse 99 Oximetry 01/01/17 01/01/17 04:00 08:47 Temperature 98.2 F 98.4 F Pulse Rate [ 73 Apical] Pulse Rate [ 68 Right From Monitor] Respiratory 20 18 Rate Blood Pressure 153/76 156/76 [Right Arm] O2 Sat by Pulse 99 100 Oximetry - Labs CBC & BMP: 01/01/17 05:54 01/01/17 05:54 Labs: Abnormal lab results 12/31/16 12/31/16 01/01/17 Range/Units 11:21 22:01 05:54 RBC 3.43 L (3.65-5.03) M/mm3 Hgb 9.9 L (10.1-14.3) gm/dl Seg Neuts % (Manual) 76.0 H (40.0-70.0) % Lymphocytes % (Manual) 4.0 L (13.4-35.0) % Seg Neutrophils # Man 7.8 H (1.8-7.7) K/mm3 Lymphocytes # (Manual) 0.4 L (1.2-5.4) K/mm3 D-Dimer 951.20 H (0-234) ng/mlDDU Sodium (137-145) mmol/L Chloride (98-107) mmol/L Glucose (65-100) mg/dL POC Glucose 154 H (70-105) Calcium (8.4-10.2) mg/dL 01/01/17 Range/Units 05:54 RBC (3.65-5.03) M/mm3 Hgb (10.1-14.3) gm/dl Seg Neuts % (Manual) (40.0-70.0) % Lymphocytes % (Manual) (13.4-35.0) % Seg Neutrophils # Man (1.8-7.7) K/mm3 Lymphocytes # (Manual) (1.2-5.4) K/mm3 D-Dimer (0-234) ng/mlDDU Sodium 133 L (137-145) mmol/L Chloride 96.1 L (98-107) mmol/L Glucose 175 H (65-100) mg/dL POC Glucose (70-105) Calcium 8.3 L (8.4-10.2) mg/dL
[2017-01-01] MEDS: VITAMIN D3 PO SCH ×2 (12:08→22:35)
[2017-01-01] MEDS: ASPIRIN PO SCH ×2 (12:09→22:35)
[2017-01-01] MEDS: TUMS PO SCH ×2 (12:09→22:35)
[2017-01-01] MEDS: HCTZ PO SCH (12:09)
[2017-01-01] MEDS: NORVASC PO SCH (12:09)
[2017-01-01] MEDS: LEVAQUIN 500MG/100ML 500 MG/100 ML BAG IV SCH (12:16)
[2017-01-01] MEDS: PEPCID PO SCH ×2 (12:16→22:34)
[2017-01-01] MEDS: DELTASONE PO SCH ×2 (12:35→22:34)
--- NOTE | 2017-01-01 13:01 | Progress Note ---
Assessment and Plan Assessment and plan: 1. Total knee arthroplasty. Continue PT/OT postoperatively. Pain control. Patient likely would need rehab placement. 2. ? Diarrhea. Nursing reports Patient with loose but formed stools. Patient did receive Kayexalate yesterday. 3. Hypertension. Continue Norvasc. 4. Rheumatoid arthritis flare. DC IV steroids and start prednisone taper. 5. Type 2 diabetes mellitus. Continue metformin and sliding scale coverage. 6. Dyspnea. Check chest x-ray and d-dimer. 7. Fever. Resolving. Urinalysis negative. Continue to follow blood cultures. 8. Disposition. Consider discharge to acute rehabilitation in a.m. History Interval history: Patient states she feels much better today. Patient denies any complaints. Hospitalist Physical - Constitutional Vitals: Temp Pulse Resp BP Pulse Ox 98.4 F 73 18 156/76 100 01/01/17 08:47 01/01/17 12:09 01/01/17 08:47 01/01/17 12:09 01/01/17 08:47 General appearance: Present: mild distress (appears uncomfortable but nontoxic) - EENT Eyes: Present: PERRL, EOM intact ENT: hearing intact, clear oral mucosa, dentition normal - Neck Neck: Present: supple, normal ROM - Respiratory Respiratory effort: normal Respiratory: bilateral: CTA - Cardiovascular Rhythm: regular Heart Sounds: Present: S1 & S2. Absent: gallop, rub - Extremities Extremities: no ischemia, No edema, Full ROM - Abdominal General gastrointestinal: soft, non-tender, non-distended, normal bowel sounds - Integumentary Integumentary: Present: clear, warm, dry - Neurologic Neurologic: CNII-XII intact, moves all extremities Results - Labs CBC & Chem 7: 01/01/17 05:54 01/01/17 05:54 Labs: Laboratory Last Values WBC 10.3 K/mm3 (4.5-11.0) 01/01/17 05:54 RBC 3.43 M/mm3 (3.65-5.03) L 01/01/17 05:54 Hgb 9.9 gm/dl (10.1-14.3) L 01/01/17 05:54 Hct 30.8 % (30.3-42.9) 01/01/17 05:54 MCV 92 fl (79-97) 01/01/17 05:54 MCH 29 pg (28-32) 01/01/17 05:54 MCHC 32 % (30-34) 01/01/17 05:54 RDW 15.0 % (13.2-15.2) 01/01/17 05:54 Plt Count 204 K/mm3 (140-440) 01/01/17 05:54 Add Manual Diff Complete 01/01/17 05:54 Total Counted 100 01/01/17 05:54 Seg Neutrophils % Erp Engineer 01/01/17 05:54 Seg Neuts % (Manual) 76.0 % (40.0-70.0) H 01/01/17 05:54 Band Neutrophils % 17.0 % 01/01/17 05:54 Lymphocytes % (Manual) 4.0 % (13.4-35.0) L 01/01/17 05:54 Reactive Lymphs % (Man) 0 % 01/01/17 05:54 Monocytes % (Manual) 3.0 % (0.0-7.3) 01/01/17 05:54 Eosinophils % (Manual) 0 % (0.0-4.3) 01/01/17 05:54 Basophils % (Manual) 0 % (0.0-1.8) 01/01/17 05:54 Metamyelocytes % 0 % 01/01/17 05:54 Myelocytes % 0 % 01/01/17 05:54 Promyelocytes % 0 % 01/01/17 05:54 Blast Cells % 0 % 01/01/17 05:54 Nucleated RBC % Not Reportable 01/01/17 05:54 Seg Neutrophils # Man 7.8 K/mm3 (1.8-7.7) H 01/01/17 05:54 Band Neutrophils # 1.8 K/mm3 01/01/17 05:54 Lymphocytes # (Manual) 0.4 K/mm3 (1.2-5.4) L 01/01/17 05:54 Abs React Lymphs (Man) 0.0 K/mm3 01/01/17 05:54 Monocytes # (Manual) 0.3 K/mm3 (0.0-0.8) 01/01/17 05:54 Eosinophils # (Manual) 0.0 K/mm3 (0.0-0.4) 01/01/17 05:54 Basophils # (Manual) 0.0 K/mm3 (0.0-0.1) 01/01/17 05:54 Metamyelocytes # 0.0 K/mm3 01/01/17 05:54 Myelocytes # 0.0 K/mm3 01/01/17 05:54 Promyelocytes # 0.0 K/mm3 01/01/17 05:54 Blast Cells # 0.0 K/mm3 01/01/17 05:54 WBC Morphology Not Reportable 01/01/17 05:54 Hypersegmented Neuts Not Reportable 01/01/17 05:54 Hyposegmented Neuts Not Reportable 01/01/17 05:54 Hypogranular Neuts Not Reportable 01/01/17 05:54 Smudge Cells Not Reportable 01/01/17 05:54 Toxic Granulation Not Reportable 01/01/17 05:54 Toxic Vacuolation Not Reportable 01/01/17 05:54 Dohle Bodies Not Reportable 01/01/17 05:54 Pelger-Huet Anomaly Not Reportable 01/01/17 05:54 Amrik Rods Not Reportable 01/01/17 05:54 Platelet Estimate Not Reportable 01/01/17 05:54 Clumped Platelets Not Reportable 01/01/17 05:54 Plt Clumps, EDTA Not Reportable 01/01/17 05:54 Large Platelets Not Reportable 01/01/17 05:54 Giant Platelets Not Reportable 01/01/17 05:54 Platelet Satelliting Not Reportable 01/01/17 05:54 Plt Morphology Comment Not Reportable 01/01/17 05:54 RBC Morphology Not Reportable 01/01/17 05:54 Dimorphic RBCs Not Reportable 01/01/17 05:54 Polychromasia Not Reportable 01/01/17 05:54 Hypochromasia Rare 01/01/17 05:54 Poikilocytosis Not Reportable 01/01/17 05:54 Anisocytosis Rare 01/01/17 05:54 Microcytosis Not Reportable 01/01/17 05:54 Macrocytosis Not Reportable 01/01/17 05:54 Spherocytes Not Reportable 01/01/17 05:54 Pappenheimer Bodies Not Reportable 01/01/17 05:54 Sickle Cells Not Reportable 01/01/17 05:54 Target Cells Not Reportable 01/01/17 05:54 Tear Drop Cells Not Reportable 01/01/17 05:54 Ovalocytes Not Reportable 01/01/17 05:54 Helmet Cells Not Reportable 01/01/17 05:54 Trevino-[place] Bodies Not Reportable 01/01/17 05:54 [place] Rings Not Reportable 01/01/17 05:54 Rickey Cells Not Reportable 01/01/17 05:54 Bite Cells Not Reportable 01/01/17 05:54 Crenated Cell Not Reportable 01/01/17 05:54 Elliptocytes Not Reportable 01/01/17 05:54 Acanthocytes (Spur) Not Reportable 01/01/17 05:54 Rouleaux Not Reportable 01/01/17 05:54 Hemoglobin C Crystals Not Reportable 01/01/17 05:54 Schistocytes Not Reportable 01/01/17 05:54 Malaria parasites Not Reportable 01/01/17 05:54 Manny Bodies Not Reportable 01/01/17 05:54 Hem Pathologist Commnt No 01/01/17 05:54 PT 14.4 Sec. (12.2-14.9) 12/30/16 04:40 INR 1.13 (0.87-1.13) 12/30/16 04:40 D-Dimer 951.20 ng/mlDDU (0-234) H 12/31/16 11:21 Sodium 133 mmol/L (137-145) L 01/01/17 05:54 Potassium 4.4 mmol/L (3.6-5.0) 01/01/17 05:54 Chloride 96.1 mmol/L (98-107) L 01/01/17 05:54 Carbon Dioxide 22 mmol/L (22-30) 01/01/17 05:54 Anion Gap 19 mmol/L 01/01/17 05:54 BUN 9 mg/dL (7-17) 01/01/17 05:54 Creatinine 0.8 mg/dL (0.7-1.2) 01/01/17 05:54 Estimated GFR > 60 ml/min 01/01/17 05:54 BUN/Creatinine Ratio 11.25 % 01/01/17 05:54 Glucose 175 mg/dL (65-100) H 01/01/17 05:54 POC Glucose 154 (70-105) H 01/01/17 11:48 Calcium 8.3 mg/dL (8.4-10.2) L 01/01/17 05:54 TSH 0.525 mlU/mL (0.270-4.200) 12/30/16 15: Free T4 2.00 ng/dL (0.76-1.46) H 12/30/16 15:12 Urine Color Colorless (Yellow) 12/31/16 15: Urine Turbidity Clear (Clear) 12/31/16 15: Urine pH 6.0 (5.0-7.0) 12/31/16 15: Ur Specific Irene 1.004 (1.003-1.030) 12/31/16 15: Urine Protein <15 mg/dl mg/dL (Negative) 12/31/16 15: Urine Glucose (UA) 150 mg/dL (Negative) 12/31/16 15: Urine Ketones Tr mg/dL (Negative) 12/31/16 15: Urine Blood Sm (Negative) 12/31/16 15: Urine Nitrite Neg (Negative) 12/31/16 15:29 Urine Bilirubin Neg (Negative) 12/31/16 15: Urine Urobilinogen < 2.0 mg/dL (<2.0) 12/31/16 15:29 Ur Leukocyte Esterase Neg (Negative) 12/31/16 15:29 Urine WBC (Auto) < 1.0 /HPF (0.0-6.0) 12/31/16 15: Urine RBC (Auto) 1.0 /HPF (0.0-6.0) 12/31/16 15: Urine Mucus Few /HPF 12/31/16 15:29 Blood Type B POSITIVE 12/29/16 10:00 Antibody Screen Negative 12/29/16 10:00
[2017-01-01] MEDS: XALATAN 0.005% OU SCH (18:14)
[2017-01-01] MEDS: NOVOLOG SUB-Q SCH (22:00)
[2017-01-01] MEDS: PERCOCET 5/325 PO PRN (22:34)
[2017-01-02] MEDS: SYNTHROID PO SCH (06:16)
[2017-01-02] MEDS: NOVOLOG SUB-Q SCH ×2 (06:21→10:06)
--- NOTE | 2017-01-02 07:44 | Progress Note ---
Assessment and Plan Assessment and plan: 1. Total knee arthroplasty. Continue PT/OT postoperatively. Pain control. Patient likely would need rehab placement. 2. Diarrhea. Resolving. Patient did receive Kayexalate on 12/31. Follow stool studies 3. Hypertension. Continue Norvasc. 4. Rheumatoid arthritis flare. DC IV steroids and start prednisone taper. 5. Type 2 diabetes mellitus. Continue metformin and sliding scale coverage. 6. Dyspnea. Resolved. CXR negative 7. Fever. Resolved. Urinalysis negative. Continue to follow blood cultures. 8. Disposition. Consider discharge to acute rehabilitation in a.m. History Interval history: Patient states she feels much better today. Patient denies any complaints. Hospitalist Physical - Constitutional Vitals: Temp Pulse Resp BP Pulse Ox 98.7 F 81 18 163/69 100 01/01/17 20:53 01/01/17 20:53 01/01/17 23:34 01/01/17 20:53 01/01/17 20:53 General appearance: Present: mild distress (appears uncomfortable but nontoxic) - EENT Eyes: Present: PERRL, EOM intact ENT: hearing intact, clear oral mucosa, dentition normal - Neck Neck: Present: supple, normal ROM - Respiratory Respiratory effort: normal Respiratory: bilateral: CTA - Cardiovascular Rhythm: regular Heart Sounds: Present: S1 & S2. Absent: gallop, rub - Extremities Extremities: no ischemia, No edema, Full ROM - Abdominal General gastrointestinal: soft, non-tender, non-distended, normal bowel sounds - Integumentary Integumentary: Present: clear, warm, dry - Neurologic Neurologic: CNII-XII intact, moves all extremities Results - Labs CBC & Chem 7: 01/01/17 05:54 01/01/17 05:54 Labs: Laboratory Last Values WBC 10.3 K/mm3 (4.5-11.0) 01/01/17 05:54 RBC 3.43 M/mm3 (3.65-5.03) L 01/01/17 05:54 Hgb 9.9 gm/dl (10.1-14.3) L 01/01/17 05:54 Hct 30.8 % (30.3-42.9) 01/01/17 05:54 MCV 92 fl (79-97) 01/01/17 05:54 MCH 29 pg (28-32) 01/01/17 05:54 MCHC 32 % (30-34) 01/01/17 05:54 RDW 15.0 % (13.2-15.2) 01/01/17 05:54 Plt Count 204 K/mm3 (140-440) 01/01/17 05:54 Add Manual Diff Complete 01/01/17 05:54 Total Counted 100 01/01/17 05:54 Seg Neutrophils % [employer] Serv[employer] 01/01/17 05:54 Seg Neuts % (Manual) 76.0 % (40.0-70.0) H 01/01/17 05:54 Band Neutrophils % 17.0 % 01/01/17 05:54 Lymphocytes % (Manual) 4.0 % (13.4-35.0) L 01/01/17 05:54 Reactive Lymphs % (Man) 0 % 01/01/17 05:54 Monocytes % (Manual) 3.0 % (0.0-7.3) 01/01/17 05:54 Eosinophils % (Manual) 0 % (0.0-4.3) 01/01/17 05:54 Basophils % (Manual) 0 % (0.0-1.8) 01/01/17 05:54 Metamyelocytes % 0 % 01/01/17 05:54 Myelocytes % 0 % 01/01/17 05:54 Promyelocytes % 0 % 01/01/17 05:54 Blast Cells % 0 % 01/01/17 05:54 Nucleated RBC % Not Reportable 01/01/17 05:54 Seg Neutrophils # Man 7.8 K/mm3 (1.8-7.7) H 01/01/17 05:54 Band Neutrophils # 1.8 K/mm3 01/01/17 05:54 Lymphocytes # (Manual) 0.4 K/mm3 (1.2-5.4) L 01/01/17 05:54 Abs React Lymphs (Man) 0.0 K/mm3 01/01/17 05:54 Monocytes # (Manual) 0.3 K/mm3 (0.0-0.8) 01/01/17 05:54 Eosinophils # (Manual) 0.0 K/mm3 (0.0-0.4) 01/01/17 05:54 Basophils # (Manual) 0.0 K/mm3 (0.0-0.1) 01/01/17 05:54 Metamyelocytes # 0.0 K/mm3 01/01/17 05:54 Myelocytes # 0.0 K/mm3 01/01/17 05:54 Promyelocytes # 0.0 K/mm3 01/01/17 05:54 Blast Cells # 0.0 K/mm3 01/01/17 05:54 WBC Morphology Not Reportable 01/01/17 05:54 Hypersegmented Neuts Not Reportable 01/01/17 05:54 Hyposegmented Neuts Not Reportable 01/01/17 05:54 Hypogranular Neuts Not Reportable 01/01/17 05:54 Smudge Cells Not Reportable 01/01/17 05:54 Toxic Granulation Not Reportable 01/01/17 05:54 Toxic Vacuolation Not Reportable 01/01/17 05:54 Dohle Bodies Not Reportable 01/01/17 05:54 Pelger-Huet Anomaly Not Reportable 01/01/17 05:54 Amrik Rods Not Reportable 01/01/17 05:54 Platelet Estimate Not Reportable 01/01/17 05:54 Clumped Platelets Not Reportable 01/01/17 05:54 Plt Clumps, EDTA Not Reportable 01/01/17 05:54 Large Platelets Not Reportable 01/01/17 05:54 Giant Platelets Not Reportable 01/01/17 05:54 Platelet Satelliting Not Reportable 01/01/17 05:54 Plt Morphology Comment Not Reportable 01/01/17 05:54 RBC Morphology Not Reportable 01/01/17 05:54 Dimorphic RBCs Not Reportable 01/01/17 05:54 Polychromasia Not Reportable 01/01/17 05:54 Hypochromasia Rare 01/01/17 05:54 Poikilocytosis Not Reportable 01/01/17 05:54 Anisocytosis Rare 01/01/17 05:54 Microcytosis Not Reportable 01/01/17 05:54 Macrocytosis Not Reportable 01/01/17 05:54 Spherocytes Not Reportable 01/01/17 05:54 Pappenheimer Bodies Not Reportable 01/01/17 05:54 Sickle Cells Not Reportable 01/01/17 05:54 Target Cells Not Reportable 01/01/17 05:54 Tear Drop Cells Not Reportable 01/01/17 05:54 Ovalocytes Not Reportable 01/01/17 05:54 Helmet Cells Not Reportable 01/01/17 05:54 Trevino-[place] Bodies Not Reportable 01/01/17 05:54 [place] Rings Not Reportable 01/01/17 05:54 Rickey Cells Not Reportable 01/01/17 05:54 Bite Cells Not Reportable 01/01/17 05:54 Crenated Cell Not Reportable 01/01/17 05:54 Elliptocytes Not Reportable 01/01/17 05:54 Acanthocytes (Spur) Not Reportable 01/01/17 05:54 Rouleaux Not Reportable 01/01/17 05:54 Hemoglobin C Crystals Not Reportable 01/01/17 05:54 Schistocytes Not Reportable 01/01/17 05:54 Malaria parasites Not Reportable 01/01/17 05:54 Manny Bodies Not Reportable 01/01/17 05:54 Hem Pathologist Commnt No 01/01/17 05:54 PT 14.4 Sec. (12.2-14.9) 12/30/16 04:40 INR 1.13 (0.87-1.13) 12/30/16 04:40 D-Dimer 951.20 ng/mlDDU (0-234) H 12/31/16 11:21 Sodium 133 mmol/L (137-145) L 01/01/17 05:54 Potassium 4.4 mmol/L (3.6-5.0) 01/01/17 05:54 Chloride 96.1 mmol/L (98-107) L 01/01/17 05:54 Carbon Dioxide 22 mmol/L (22-30) 01/01/17 05:54 Anion Gap 19 mmol/L 01/01/17 05:54 BUN 9 mg/dL (7-17) 01/01/17 05:54 Creatinine 0.8 mg/dL (0.7-1.2) 01/01/17 05:54 Estimated GFR > 60 ml/min 01/01/17 05:54 BUN/Creatinine Ratio 11.25 % 01/01/17 05:54 Glucose 175 mg/dL (65-100) H 01/01/17 05:54 POC Glucose 190 (70-105) H 01/01/17 22:20 Calcium 8.3 mg/dL (8.4-10.2) L 01/01/17 05:54 TSH 0.525 mlU/mL (0.270-4.200) 12/30/16 15: Free T4 2.00 ng/dL (0.76-1.46) H 12/30/16 15:12 Urine Color Colorless (Yellow) 12/31/16 15: Urine Turbidity Clear (Clear) 12/31/16 15: Urine pH 6.0 (5.0-7.0) 12/31/16 15: Ur Specific Diana 1.004 (1.003-1.030) 12/31/16 15: Urine Protein <15 mg/dl mg/dL (Negative) 12/31/16 15: Urine Glucose (UA) 150 mg/dL (Negative) 12/31/16 15: Urine Ketones Tr mg/dL (Negative) 12/31/16 15: Urine Blood Sm (Negative) 12/31/16 15: Urine Nitrite Neg (Negative) 12/31/16 15: Urine Bilirubin Neg (Negative) 12/31/16 15: Urine Urobilinogen < 2.0 mg/dL (<2.0) 12/31/16 15: Ur Leukocyte Esterase Neg (Negative) 12/31/16 15: Urine WBC (Auto) < 1.0 /HPF (0.0-6.0) 12/31/16 15: Urine RBC (Auto) 1.0 /HPF (0.0-6.0) 12/31/16 15: Urine Mucus Few /HPF 12/31/16 15: Blood Type B POSITIVE 12/29/16 10:00 Antibody Screen Negative 12/29/16 10:00
[2017-01-02] MEDS: NORVASC PO SCH (09:38)
[2017-01-02] MEDS: TUMS PO SCH (09:38)
[2017-01-02] MEDS: HCTZ PO SCH (09:38)
[2017-01-02] MEDS: GLUCOPHAGE PO SCH ×2 (09:42→17:00)
[2017-01-02] MEDS: TRADJENTA PO SCH ×2 (09:44→17:00)
[2017-01-02] MEDS: ASPIRIN PO SCH (09:44)
[2017-01-02] MEDS: VITAMIN D3 PO SCH (09:44)
[2017-01-02] MEDS: PEPCID PO SCH (09:44)
[2017-01-02] MEDS ORDERED: DELTASONE PO SCH (10:00)
[2017-01-02] MEDS: PERCOCET 5/325 PO PRN (10:05)
[2017-01-02] MEDS: NON-FORMULARY (Brinzolamide [Azopt 1%] 1 DROP) INTRAOCULA SCH (10:09)
--- NOTE | 2017-01-02 12:39 | Event Note ---
Date: 01/02/17 F/U [facility], s/p left TKA. Pt seen in room on this AM. Upon entering, pt noted to be ambulating independently with rolling walker; states she has been taking herself to the bathroom over the weekend. Pain is much better controlled; HR now stable; fever resolved. Case discussed with SW and treating PT on today; pt is recommended for D/C home with home health; has 2 sons that are local and pt encouraged to allow them to assist in care. Please call for any further questions. Thank you for consultation.
[2017-01-02 15:35] VITALS: BP 154/84
[2017-01-02] MEDS: LEVAQUIN 500MG/100ML 500 MG/100 ML BAG IV SCH (16:08)
[2017-01-02] MEDS: XALATAN 0.005% OU SCH (18:00)
== END 2017-01-02 20:45 | disposition home health service (06) | DRG 470 ==
LOC: 3A 09:13 → 2B-SURG 16:00
PROVIDERS: ADMIT Orthopaedic Surgery; ATTEND Hospitalist
PROC: 0SRD0J9 Replacement of Left Knee Joint with Synthetic Substitute, Cemented, Open Approach (ICD-10-PCS; principal; 2016-12-29)
DX: M17.12 Unilateral primary osteoarthritis, left knee (principal); E87.1 Hypo-osmolality and hyponatremia; I10 Essential (primary) hypertension; M06.9 Rheumatoid arthritis, unspecified; E11.8 Type 2 diabetes mellitus with unspecified complications; R06.00 Dyspnea, unspecified; R50.9 Fever, unspecified; E03.9 Hypothyroidism, unspecified; E87.5 Hyperkalemia; R00.1 Bradycardia, unspecified; Z88.8 Allergy status to other drugs, medicaments and biological substances; Z82.49 Family history of ischemic heart disease and other diseases of the circulatory system
CPT/HCPCS: 36415; 71010; 80048; 81001; 82962; 84439; 84443; 85007; 85025; 85379; 85610; 86850; 86900; 86901; 87040; 87086; 87116; 88305; 88311; 93005; 93010; 94760; A4217; A9270-GY; C1776; G8978-GP; G8979-GP; J0690; J1100; J1170; J1815; J1885; J1956; J2250; J2270; J2405; J2704; J2710; J2920; J7030; J7512

== ENCOUNTER 2017-03-21 10:04 | Outpatient (CLI) | payer MEDICARE, OTHER ==
[2017-03-21 11:09] LABS: Blood Urea Nitrogen 19 mg/dL (7-17)
--- NOTE | 2017-03-22 10:01 | Magnetic Resonance Report ---
MRI ABDOMEN WITH AND WITHOUT CONTRAST INDICATION: Dilated common bile duct. COMPARISON: Correlated to 10/06/2011 RUQ ultrasound. FINDINGS: Pre-and post contrast multiplanar and multisequence MRI of the abdomen performed utilizing 12 ml Multihance intravenously and again demonstrates common bile duct caliber of approximately 5-6 mm at the ad hepatis, approximately 4-5 mm along its mid course about the pancreatic head and tapering to a normal caliber of 1-2 mm distally near the ampulla. No focal suspicious intrinsic filling defects. Unremarkable visualized pancreatic duct as well. Left hepatic lobe tip extends into the left upper quadrant. Liver, spleen, gallbladder, pancreas, adrenals, nonaneurysmal abdominal aorta, IVC and kidneys within normal limits. No ascites or size significant adenopathy. Normal bowel, marrow and muscle signal. Lower lumbar spine degenerative changes. Mild colonic stool/possible constipation. No suspicious abnormal enhancement. Clear imaged lung bases. Right hemidiaphragm slightly elevated. MRCP images confirm the above findings. CONCLUSION: 1. Maximum CBD caliber at the ad hepatis approximately 6 mm, age-appropriate and unchanged since October 2011 ultrasound. No evidence of cholelithiasis or choledocholithiasis. 2. Few other incidental findings, as above. Thank you for the opportunity to participate in this patient's care.
== END 2017-03-21 10:05 | disposition home or self-care (01) ==
LOC: MRI 10:04
PROVIDERS: ATTEND Internal Medicine
DX: K83.8 Other specified diseases of biliary tract (principal); M47.896 Other spondylosis, lumbar region
CPT/HCPCS: 36415; 74183; 82565; 84520; A9577